=== PATIENT | male | born 1950 | race Caucasian/White ===

== ENCOUNTER → 2018-01-11 09:51 | Outpatient (CLI) | payer MEDICARE, SELFPAY ==
[2018-01-11 11:13] LABS: Alanine Aminotransferase 30 U/L (12-78); Albumin Level 4.1 gm/dL (3.4-5.0); Albumin/Globulin Ratio 1.2 (1.1-1.8); Alkaline Phosphatase 91 U/L (46-116); Anion Gap 9.3 mEq/L (5-15); Aspartate Amino Transferase 16 U/L (15-37); Bilirubin,Total 0.7 mg/dL (0.2-1.0); Blood Urea Nitrogen 12 mg/dL (7-18); Calcium 9.6 mg/dL (8.5-10.1); Carbon Dioxide 31 mmol/L (21.0-32.0); Chloride 103 mmol/L (98-107); Chol/HDL Ratio 4.5 (1-3.5); Cholesterol 189 mg/dL (140-200); Creatinine,Serum 1.09 mg/dL (0.70-1.30); Estimated Glomerular Filt Rate 67 ml/min (>60); GFR (African American) 81 ML/MIN (>60); Globulin 3.4 gm/dl (1.3-3.2); Glucose 94 mg/dL (74-106); HDL Cholesterol 42 mg/dL (27-67); LDL Cholesterol 128 mg/dL (0-130); Potassium 5.3 mmoL/L (3.5-5.1); Sodium 138 mmol/L (136-145); Total Protein,Serum 7.5 gm/dL (6.4-8.2); Triglycerides 96 mg/dL (30-200); VLDL Cholesterol 19 mg/dL (0-40)
== END ==
PROVIDERS: PCP Internal Medicine Adolescent Medicine; Visit Provider Nurse Practitioner Family
DX: Z00.00 Encounter for general adult medical examination without abnormal findings (principal); I10 Essential (primary) hypertension
CPT/HCPCS: 36415; 80053; 80061

== ENCOUNTER → 2019-01-10 09:50 | Outpatient (CLI) | payer MEDICARE, SELFPAY ==
[2019-01-10 21:23] LABS: Alanine Aminotransferase 23 U/L (12-78); Albumin Level 4.1 gm/dL (3.4-5.0); Albumin/Globulin Ratio 1.2 (1.1-1.8); Alkaline Phosphatase 71 U/L (46-116); Anion Gap 12.8 mEq/L (5-15); Aspartate Amino Transferase 14 U/L (15-37); Bilirubin,Total 0.8 mg/dL (0.2-1.0); Blood Urea Nitrogen 16 mg/dL (7-18); Calcium 9.2 mg/dL (8.5-10.1); Carbon Dioxide 28 mmol/L (21.0-32.0); Chloride 102 mmol/L (98-107); Chol/HDL Ratio 4.9 (1-3.5); Cholesterol 185 mg/dL (140-200); Creatinine,Serum 1.23 mg/dL (0.70-1.30); Estimated Glomerular Filt Rate 58 ml/min (>60); GFR (African American) 70 ML/MIN (>60); Globulin 3.3 gm/dl (1.3-3.2); Glucose 103 mg/dL (74-106); HDL Cholesterol 38 mg/dL (27-67); LDL Cholesterol 124 mg/dL (0-130); Potassium 4.8 mmoL/L (3.5-5.1); Sodium 138 mmol/L (136-145); Total Protein,Serum 7.4 gm/dL (6.4-8.2); Triglycerides 113 mg/dL (30-200); VLDL Cholesterol 23 mg/dL (0-40)
== END ==
PROVIDERS: Visit Provider Nurse Practitioner Family
DX: I10 Essential (primary) hypertension (principal)
CPT/HCPCS: 36415; 80053; 80061

== ENCOUNTER → 2020-09-30 10:47 | Outpatient (CLI) | payer MEDICARE, SELFPAY ==
[2020-09-30 11:39] LABS: Basophils # 0.1 K/mm3 (0-0.2); Basophils % 1.2 % (0.1-2.0); Eosinophils # 0.3 K/mm3 (0.0-0.4); Eosinophils % 3.8 % (0.1-12.0); Hematocrit 34.4 % (42.0-52.0); Hemoglobin 11.1 g/dL (14.1-18.0); Lymphocytes # 2.4 K/mm3 (0.7-4.5); Lymphocytes % 36.9 % (10-50); Mean Corpuscular HGB Conc 32.2 g/dL (31.8-35.4); Mean Corpuscular Hemoglobin 32.2 pg (27.0-31.2); Mean Corpuscular Volume 100.2 fl (80-94); Mean Platelet Volume 7.8 fl (7.4-10.4); Monocytes # 0.4 K/mm3 (0.1-1.0); Monocytes % 6.5 % (1.7-9.3); Neutrophils # 3.4 K/mm3 (1.8-7.8); Neutrophils % 51.5 % (37.0-80.0); Platelet Count 343 K/mm3 (142-424); Red Blood Count 3.44 M/mm3 (4.60-6.20); Red Cell Distribution Width 20.9 % (11.5-17.5); White Blood Count 6.5 K/mm3 (4.8-10.8)
[2020-09-30 12:22] LABS: Chloride 103 mmol/L (98-107)
[2020-09-30 12:23] LABS: Potassium 5.5 mmoL/L (3.5-5.1); Sodium 139 mmol/L (136-145)
[2020-09-30 12:26] LABS: Alanine Aminotransferase 13 U/L (12-78); Albumin Level 4.7 g/dl (3.5-5.0); Albumin/Globulin Ratio 1.6 (1.1-1.8); Alkaline Phosphatase 76 U/L (38-126); Anion Gap 16.5 mEq/L (5-15); Aspartate Amino Transferase 24 U/L (17-59); Bilirubin,Total 1.1 mg/dl (0.2-1.3); Blood Urea Nitrogen 16 mg/dl (9-20); Carbon Dioxide 25 mmol/L (22.0-30.0); Cholesterol 155 mg/dl (140-200); Estimated Glomerular Filt Rate 66 ml/min (>60); GFR (African American) 80 ML/MIN (>60); Glucose 99 mg/dl (74-100); Total Protein,Serum 7.7 g/dl (6.3-8.2); Triglycerides 67 mg/dl (30-150); VLDL Cholesterol 13 mg/dL (0-40)
[2020-09-30 12:27] LABS: Chol/HDL Ratio 3.6 (1-3.5); HDL Cholesterol 43 mg/dl (40-60)
[2020-09-30 12:38] LABS: Direct LDL Cholesterol 102.29 mg/dL (100-129)
[2020-09-30 12:43] LABS: Hemoglobin A1C 5.8 % (4.0-6.0)
[2020-09-30 12:45] LABS: 25-OH Vitamin D, Total 36.4 ng/mL (30-100)
[2020-09-30 12:56] LABS: Thyroid Stimulating Hormone 0.97 uIU/mL (0.465-4.68)
[2020-09-30 13:14] LABS: Vitamin B12 299 pg/mL (239-931)
== END ==
PROVIDERS: Visit Provider Internal Medicine Adolescent Medicine
DX: R55 Syncope and collapse (principal); R53.81 Other malaise; I10 Essential (primary) hypertension; R53.83 Other fatigue
CPT/HCPCS: 36415; 80053; 80061; 82306; 82607; 83036; 83735; 84443; 85025

== ENCOUNTER → 2020-10-08 08:07 | Outpatient (CLI) | payer MEDICARE, SELFPAY ==
--- NOTE | 2020-10-08 08:16 | MR_ITS ---
PROCEDURE: MR HEAD/BRAIN WO CON CLINICAL INDICATION: SYNCOPE AND COLLAPSE COMPARISON: No exams were available for comparison TECHNIQUE: Routine multiplanar multi echo sequences are performed without gadolinium enhancement. FINDINGS: No midline shift, mass effect, intracranial hemorrhage, or acute infarction is evident. No restricted diffusion. The cerebellopontine angles, cerebellum, midbrain, and brainstem have an unremarkable appearance. There is mild diffuse cerebral atrophy with scattered periventricular and subcortical T2 white matter hyperintensities most likely related to ischemic gliotic change from microvascular disease. The pituitary, optic chiasm, corpus callosum, and craniocervical junction have an unremarkable appearance. There does appear to be some spinal stenosis at the C3-C4 level as seen on the edge of the sagittal images with bulging disc and degenerative disc disease and lamina hypertrophy at that level. No mastoid effusion or sinus air-fluid level. There is some mild mucosal thickening of the ethmoid sinuses. The ventricles are enlarged but may be related to the volume loss from the generalized atrophy. IMPRESSION: 1. No acute intracranial findings. 2. Atrophy with periventricular ischemic gliotic changes. 3. Enlarged lateral ventricles. This may only be due to the volume loss from the generalized atrophy. Normal pressure hydrocephalus would be included in the differential diagnosis. Please correlate with clinical findings. Dictated by: Gilles Horne MD 10/08/2020 10:16 Gilles Horne MD in [place] 10/08/2020 10:16
== END ==
PROVIDERS: PCP Internal Medicine Adolescent Medicine; Visit Provider Internal Medicine Adolescent Medicine
DX: R55 Syncope and collapse (principal)
CPT/HCPCS: 70551

== ENCOUNTER → 2020-12-16 10:05 | Outpatient (CLI) | payer MEDICARE, SELFPAY ==
--- NOTE | 2020-12-16 10:08 | CA_ITS ---
APPROVED REPORT EXAM: Comprehensive 2D, Doppler, and color-flow Echocardiogram Lead Machinist: Venecia Cummings, RT(R) Ht: 5 ft 9 in Wt: 145lbs BSA: 1.80 BP: 134/67 mmHg Indications: syncope, smoker, HTN 2D Dimensions LVOT 1.97 cm (M/F) 1.5-2.5 LVEF (Pagan's) 59.10 % M: 52 - 72 LV Volume 82.40 mL M: 62 - 150 LV Volume Index 45.77 mL/m2 M: 34 - 74 LA Volume 29.20 mL LA Volume Index 16.22 mL/m2 (M/F) 16-34 M-Mode Dimensions RVDd 2.64 cm (0.9-2.6) LA Diam 3.05 cm (1.9-4.0) LVDd 4.89 cm (3.5-5.7) Ao Diam 2.51 cm (2.0-3.7) LVDs 3.39 cm (3.5-5.7) IVSd 0.54 cm (0.6-1.1) PWd 0.93 cm (0.6-1.1) EF (Teich) 58.10% FS 30.70% EDV (Teich) 112.30 mL ESV (Teich) 47.10 mL LV Diastology E Decel Time 207.00 (160-240 msec) E/A Ratio 1.2 MED E' 11.80 (< 7 cm/sec) E'/MED E' Ratio 8.15 (>14) LAT E' 10.70 (<10 cm/sec) E/LAT E' Ratio 8.99 (>14) Mitral Valve MV E Max Edwardo. 96.00 (40-130 cm/s) MV A Velocity 78.00 (40-130 cm/s) E/A Ratio 1.23 MV Decel. Time 207.00 (160-240 ms) MV PHT 61.00 ms Left Ventricle Left atrium is mildly enlarged, left ventricle is normal size, mild concentric left ventricular hypertrophy, visually estimated ejection fraction 55% with no regional wall motion abnormality, diastolic parameters are inconclusive. Right Ventricle Right atrium and right ventricle are normal size and contractility. Aortic Valve Aortic valve is thickened and calcified without aortic stenosis or aortic insufficiency. Mitral Valve Mitral valve grossly normal, there is mild mitral regurgitation. Tricuspid Valve Tricuspid valve grossly normal, there is mild tricuspid regurgitation, tricuspid regurgitation jet velocity is inadequate for calculation of the right ventricular systolic pressure. Pulmonic Valve Pulmonic valve is poorly visualized. Great Vessels Aortic root is normal size. Pericardium No significant pericardial effusion noted. Conclusion 1. Mildly enlarged left atrium, normal left ventricular size, mild concentric left ventricular hypertrophy, visually estimated ejection fraction 55% with no regional wall motion abnormality, diastolic parameters are inconclusive. 2. Thickened and calcified aortic valve without aortic stenosis or aortic insufficiency. 3. Mild mitral and tricuspid regurgitation. 4. No significant pericardial effusion noted. Electronically signed by : Ruiz Rider MD 12/16/2020 19:34:21
--- NOTE | 2020-12-16 10:09 | CA_ITS ---
APPROVED REPORT Bulk Sausage Casing Tier Off: Dina Foley RVT Laterality: Bilateral Study Quality: Good Indications: Syncope Risk Factors Hypertension: Smoking Doppler Spectral Velocity Analysis ECA (R) 87.70/11.80 cm/s ECA (L) 72.70/7.50 cm/s dICA (R) 96.20/26.70 cm/s dICA (L) 135.80/33.10 cm/s Penny (R) 103.70/23.50 cm/s Penny (L) 104.80/29.90 cm/s pICA (R) 102.70/18.20 cm/s pICA (L) 95.20/21.40 cm/s dCCA (R) 79.10/17.10 cm/s dCCA (L) 104.80/16.00 cm/s pCCA (R) 110.10/15.00 cm/s pCCA (L) 97.30/12.80 cm/s Vert (R) 62.00/19.20 cm/s Vert (L) 59.90/17.10 cm/s ICA/CCA 1.31 ICA/CCA 1.30 Findings Study suggests less than 20% stenosis of the right internal cartoid artery. Study suggests 20-49% stenosis of the left internal cartoid artery. Antegrade flow seen bilateral vertebral arteries. Conclusion Study suggests less than 20% stenosis of the right internal cartoid artery. Study suggests 20-49% stenosis of the left internal cartoid artery. Antegrade flow seen bilateral vertebral arteries. Electronically signed by : Gilles Horne MD 12/16/2020 17:27:33
== END ==
PROVIDERS: PCP Internal Medicine Adolescent Medicine; Visit Provider Nurse Practitioner Family
DX: R55 Syncope and collapse (principal); R00.1 Bradycardia, unspecified
CPT/HCPCS: 93225; 93226; 93306; 93880

== ENCOUNTER → 2021-03-06 07:14 | Outpatient (CLI) | payer MEDICARE, SELFPAY ==
--- NOTE | 2021-03-06 | CA_ITS ---
APPROVED REPORT Exam: Pharmacologic Technologist: Marjorie Morocho, Ht: 5 ft 9 in Wt: 146 lbs BSA: 1.81 m2 HR: 52 bpm BP: 135/40 mmHg Rhythm: NSR, NSS TTW ABNORMALITIES INF-LAT Medical History Medical History: HTN, Hyperlipidemia Medications: Atorvastatin,,,,, Lisinopri/HCTZ,,,,, Allergies: ASPIRIN Cardiac Risk Factors: HTN, Hyperlipidemia Stress Test Details Test: LEXISCAN HR Resting HR: 57 bpm Max Heart Rate (APMHR): 148.772943 bpm Max HR Achieved: 81 bpm Target HR (85% APMHR): 125.598182 bpm % of APMHR: 54.73 Recovery HR: 67 bpm BP Resting BP: 135/40 mmHg Max BP: 146/65 mmHg Recovery BP: 145.0/56.0 mmHg ECG Resting ECG: NSR, NSS TTW ABNORMALITIES INF-LAT Clinical Reason for Termination: Completed Protocol Exercise duration: 04:01 min Highest Stage Achieved: Stress ECG Conclusion NO CP. <1.5MM ST SEGMENT CHANGES. NON DIAGNOSTIC. Electronically signed by : Ruiz Rider MD 03/06/2021 13:18:02
--- NOTE | 2021-03-06 07:15 | NM_ITS ---
APPROVED REPORT Exam: Nuclear Stress Test Indication: short of breath..syncope..fatigue..abn ECG Patient Location: Outpatient Stress Tech: Marjorie Morocho SC Tech:Joy StockYONI RT(R)(N) Ht: 5 ft 9 in Wt: 155 lbs HR: 52 bpm BP: 135/40 mmHg BSA: 1.85 m2 BMI: 22.8 History: short of breath..syncope..fatigue..abn ECG Procedure: Patient received a 0.4 mg of intravenous Lexiscan, resting heart rate 52 bpm, resting blood pressure 135/40 mmHg, with Lexiscan maximum heart rate achived was 78 bpm which is Less than 85 % of the maximum predicted heart rate and blood pressure was 146/65 mmHg. With Lexiscan, patient denied any complaint of chest pain. Electrocardiogram Resting electrocardiogram shows sinus rhythm, with Lexiscan there is less than 1.[address] segment depression noted from the baseline EKG. The EKG portion of the Lexiscan is nondiagnostic. Cardiac Stress and Resting SPECT Images: Cardiac Stress and Resting SPECT images were obtained using technetium 99m Myoview 32.8 mCi stress and 10.54 mCi at rest. Gated SPECT for analysis of segmental wall motion and calculation of the ejection fraction also done. Prone images were also obtained. Cardiac stress and resting SPECT images show a fixed defect in the inferior wall with normal contractility gated SPECT is likely secondary to soft tissue attenuation, no reversible ischemia seen, computer derived ejection fraction is 56% with no regional wall motion abnormality, right ventricle is normal size and contractility. Conclusion: 1. The EKG portion of the Lexiscan is nondiagnostic. 2. No scintigraphic evidence of reversible ischemia seen, computer derived ejection fraction is 56% with no regional wall motion abnormality, right ventricle is normal size and contractility. 3. Likely normal Lexiscan Myoview study. Electronically signed by : Ruiz Rider MD 03/06/2021 13:21:41
== END ==
PROVIDERS: PCP Internal Medicine Adolescent Medicine; Visit Provider Nurse Practitioner Family
DX: R42 Dizziness and giddiness (principal); R55 Syncope and collapse; R94.31 Abnormal electrocardiogram [ECG] [EKG]
CPT/HCPCS: 78452; 93017; A9502; J2785

== ENCOUNTER → 2021-03-11 08:19 | Outpatient (CLI) | payer MEDICARE, SELFPAY | PROVIDERS: PCP Internal Medicine Adolescent Medicine; Visit Provider Nurse Practitioner Family | DX: R42 Dizziness and giddiness (principal) | CPT/HCPCS: 93225; 93270 ==

== ENCOUNTER 2021-10-06 18:59 | Emergency (ER) | payer MEDICARE, SELFPAY ==
[2021-10-06 19:01] VITALS: BP 100/45; PULSE 65; RESP 16; TEMP 36.5; O2SAT 100; BMI 22.8
--- NOTE | 2021-10-06 19:34 | HMH.EDSYNC ---
ED Disposition Condition on Discharge: Good - Critical Care Critical Care Time: No <Thai Ojeda - Last Filed: 10/06/21 19:34> <Chris Cuba - Last Filed: 10/07/21 01:45> Clinical Impression: Near syncope, JIMMY (acute kidney injury) Heat exhaustion Qualifiers: Encounter type: initial encounter Qualified Code(s): T67.5XXA - Heat exhaustion, unspecified, initial encounter Disposition: Home, Self-Care Instructions: DI for Syncope in Adults (Fainting) Additional Instructions: fluids and call pcp for follow up Referrals: Colby Dodson MD [Primary Care Provider] - Attestation: On 10/06/21, the high probability of a clinically significant, sudden or life threatening deterioration of the following system(s) required my full and direct attention, intervention and personal management. The time I documented below is in addition to time spent performing reported procedures but includes the following listed in this critical care notation. Medical Decision Making - Medical Records Medical records reviewed: Yes: I reviewed the patient's medical records. - Davis Inquiry Pt receiving controlled substance: No <Thai Ojeda - Last Filed: 10/06/21 19:34> - Lab Data Lab results reviewed: Yes: I reviewed the patient's lab results. Result diagrams: 10/06/21 19:30 10/06/21 19:30 <Chris Cuba - Last Filed: 10/07/21 01:45> Vital Signs: 10/06/21 19:01 10/06/21 20:01 10/06/21 20:30 Temperature 97.7 F Temperature Source Oral Pulse Rate 66 59 L Pulse Rate [Left] 65 Respiratory Rate 16 Blood Pressure 118/50 L 128/56 L Blood Pressure [Right Arm] 100/45 L Blood Pressure Mean 67 80 Blood Pressure Mean [Right Arm] 63 02 Sat by Pulse Oximetry 100 100 100 Oxygen Delivery Method Room Air - Lab Data Lab Results 10/06/21 19:30: WBC 12.6 H, RBC 3.32 L, Hgb 10.9 L, Hct 34.5 L, MCV 103.8 H, MCH 32.8 H, MCHC 31.6 L, RDW 23.5 H, Plt Count 378, MPV 8.7, Neut % (Auto) 84.4 H, Lymph % (Auto) 8.7 L, Scott % (Auto) 6.1, Eos % (Auto) 0.4, Baso % (Auto) 0.5, Neut # (Auto) 10.6 H, Lymph # (Auto) 1.1, Scott # (Auto) 0.8, Eos # (Auto) 0.1, Baso # (Auto) 0.1 10/06/21 19:30: Sodium 136, Potassium 4.4, Chloride 100, Carbon Dioxide 24, Anion Gap 16.4 H, BUN 19, Creatinine 2.00 H, Estimated Creat Clear 33, Estimated GFR 33 L, Est GFR ( Amer) 40 L, Glucose 141 H, Calcium 10.2, Total Bilirubin 1.6 H, AST 28, ALT 21, Alkaline Phosphatase 140 H, Total Protein 7.9, Albumin 4.6, Globulin 3.3 H, Albumin/Globulin Ratio 1.4 Orders (Tests/Meds): ED MEDICATIONS Discontinued Medications Generic Name Dose Route Start Last Admin Trade Name Freq PRN Reason Stop Dose Admin Sodium Chloride 1,000 mls @ 999 mls/hr 10/06/21 19:45 10/06/21 19:59 Sod Chlor 0.9% 1000ml Bag IV 10/06/21 20:45 999 mls/hr .Q1H1M VALENTINE Administration Sodium Chloride 1,000 mls @ 999 mls/hr 10/06/21 19:45 10/06/21 19:59 Sod Chlor 0.9% 1000ml Bag IV 10/06/21 20:45 999 mls/hr .Q1H1M VALENTINE Administration Sodium Chloride 1,000 mls @ 999 mls/hr 10/06/21 21:00 10/06/21 20:55 Sod Chlor 0.9% 1000ml Bag IV 10/06/21 22:00 999 mls/hr .Q1H1M VALENTINE Administration ORDERS Category Date Time Status Urinalysis and Microscopic Routine Lab 10/06/21 22:07 Received Urine Culture Stat Micro 10/07/21 01:39 Ordered Medical Decision Narrative: has prob heat related injury with jimmy - asked pt to see pcp for follow up about meds and labs (Chris Cuba) Syncope HPI - General Limitations: No Limitations - History of Present Illness MD complaint: felt faint Onset (ago): minute(s) -: second(s) Prodromal symptoms: none Context: at rest Injuries sustained associated with event: none <Thia Ojeda - Last Filed: 10/06/21 19:34> - General Source of Information: Patient, Medical Record <Chris Cuba - Last Filed: 10/07/21 01:45> - General Stated Complaint: Dizziness,confused.stopped up
--- NOTE | 2021-10-06 19:37 | ECG_ITS ---
APPROVED REPORT Exam: Resting ECG HR:58 bpm ECG Measurements Heart Rate 58 AXES SC 153 P -45 QRSd 85 QRS 66 QT 397 T 70 QTc 395 Conclusion SINUS BRADYCARDIA BORDERLINE ECG UNCONFIRMED REPORT Electronically signed by : Colby Dodson MD 10/07/2021 17:57:30
[2021-10-06 19:43] LABS: Basophils # 0.1 K/mm3 (0-0.2); Basophils % 0.5 % (0.1-2.0); Eosinophils # 0.1 K/mm3 (0.0-0.4); Eosinophils % 0.4 % (0.1-12.0); Hematocrit 34.5 % (42.0-52.0); Hemoglobin 10.9 g/dL (14.1-18.0); Lymphocytes # 1.1 K/mm3 (0.7-4.5); Lymphocytes % 8.7 % (10-50); Mean Corpuscular HGB Conc 31.6 g/dL (31.8-35.4); Mean Corpuscular Hemoglobin 32.8 pg (27.0-31.2); Mean Corpuscular Volume 103.8 fl (80-94); Mean Platelet Volume 8.7 fl (7.4-10.4); Monocytes # 0.8 K/mm3 (0.1-1.0); Monocytes % 6.1 % (1.7-9.3); Neutrophils # 10.6 K/mm3 (1.8-7.8); Neutrophils % 84.4 % (37.0-80.0); Platelet Count 378 K/mm3 (142-424); Red Blood Count 3.32 M/mm3 (4.60-6.20); Red Cell Distribution Width 23.5 % (11.5-17.5); White Blood Count 12.6 K/mm3 (4.8-10.8)
[2021-10-06 19:56] LABS: Alanine Aminotransferase 21 U/L (12-78); Albumin Level 4.6 g/dl (3.5-5.0); Albumin/Globulin Ratio 1.4 (1.1-1.8); Alkaline Phosphatase 140 U/L (38-126); Anion Gap 16.4 mEq/L (5-15); Aspartate Amino Transferase 28 U/L (17-59); Bilirubin,Total 1.6 mg/dl (0.2-1.3); Blood Urea Nitrogen 19 mg/dl (9-20); Calcium 10.2 mg/dl (8.4-10.2); Carbon Dioxide 24 mmol/L (22.0-30.0); Chloride 100 mmol/L (98-107); Estimated Glomerular Filt Rate 33 ml/min (>60); GFR (African American) 40 ML/MIN (>60); Globulin 3.3 g/dL (1.3-3.2); Glucose 141 mg/dl (74-100); Potassium 4.4 mmoL/L (3.5-5.1); Sodium 136 mmol/L (136-145); Total Protein,Serum 7.9 g/dl (6.3-8.2)
[2021-10-06 20:01] VITALS: BP 118/50; PULSE 66; O2SAT 100
[2021-10-06 20:01] LABS: Creatinine Clearance Estimated 33 mL/min (50-200)
[2021-10-06 20:30] VITALS: BP 128/56; PULSE 59; O2SAT 100
[2021-10-06 23:30] VITALS: BP 128/56; PULSE 59; RESP 18; TEMP 36.8; O2SAT 100
[2021-10-07 01:11] LABS: Microscopic, Urine URINE MICROSCOPIC (MICROSCOPIC)
[2021-10-07 02:26] LABS: Appearance,Urine CLEAR (Clear); Bilirubin,Urine 1+ (Negative); Blood, Urine Negative (Negative); Color,Urine DK YELLOW (Yellow); Glucose,Urine (UA) Negative (Negative); Ketones,Urine TRACE (Negative); Leukocyte Esterase,Urine Negative (Negative); Nitrate,Urine Negative (Negative); Protein,Urine 3+ (Negative); Specific Gravity, Urine 1.025 (1.005-1.030)
[2021-10-07 02:27] LABS: Bacteria,Urine 1+ /lpf; RBC,Urine Occasional #/hpf (0-3)
== END 2021-10-06 23:40 | disposition home or self-care (01) ==
PROVIDERS: Emergency Provider Emergency Medicine; PCP Internal Medicine Adolescent Medicine
DX: R55 Syncope and collapse (principal); T67.5XXA Heat exhaustion, unspecified, initial encounter; R41.0 Disorientation, unspecified; F17.210 Nicotine dependence, cigarettes, uncomplicated; Z79.82 Long term (current) use of aspirin; Z88.6 Allergy status to analgesic agent
CPT/HCPCS: 80053; 81001; 85025; 87086; 93005; 96360; 96361; 99285

== ENCOUNTER 2022-01-05 14:20 | Emergency (ER) | payer MEDICARE, SELFPAY ==
[2022-01-05] VITALS (7 sets, daily range): BP systolic 107–177; BP diastolic 70–89; PULSE 60–87; RESP 16–20; TEMP 36.7–37.1; O2SAT 95–100; BMI 22.8
--- NOTE | 2022-01-05 14:22 | ECG_ITS ---
APPROVED REPORT Exam: Resting ECG HR:57 bpm ECG Measurements Heart Rate 57 AXES MS 169 P -76 QRSd 85 QRS 75 QT 430 T 73 QTc 424 Conclusion SINUS BRADYCARDIA BORDERLINE ECG UNCONFIRMED REPORT Electronically signed by : Colby Dodson MD 01/06/2022 14:04:09
--- NOTE | 2022-01-05 14:40 | PC.NURSE ---
GCS 15/NIH 0.
--- NOTE | 2022-01-05 15:05 | HMH.EDGENADL ---
Discharge Plan Disposition Patient Disposition: Home, Self-Care Condition: Good Chief Complaint: Weakness Prescriptions Prescriptions: No Action atorvastatin 40 mg tablet 40 mg PO DAILY levetiracetam 500 mg tablet 500 mg PO BID Label Comments: TAKE 1 TABLET BY MOUTH TWICE DAILY aspirin 81 mg tablet,delayed release (DR/EC) 81 mg PO DAILY Rx Instructions: Take 1 tablet by mouth once daily lisinopril 10 mg tablet 10 mg PO DAILY Rx Instructions: Take 1 tablet by mouth once daily Referrals Follow up/Referrals: Colby Dodson MD [Primary Care Provider] - See instructions Activity Restrictions/Add. Instructions Additional Instructions/Restrictions: Rest and drink plenty of fluids tonight. Return emergency department if fainting returns or feeling faint. Return if any new symptoms such as chest pain or shortness of breath. Follow-up with primary care provider, call for appointment. Clinical Impressions Clinical Impression: Syncope Discharge ED Provider: Timbo Templeton General Adult HPI General Chief complaint: Weakness Stated complaint: weakness Time Seen by Provider: 01/05/22 15:05 Mode of Arrival: EMS Source of Information: Patient Limitations: No Limitations Description of Symptoms (Recalled from ER Triage Doc. by RN): PT WAS OUTSIDE WORKING WHILE WEARING MULTIPLE LAYERS OF CLOTHES. PT WENT DOWN - NO LOC PER FAMILY WHO WITNESSED. EMS CALLED. REMOVED EXTRA CLOTHING, ADMINISTERED IVF. PT STATES HE FEELS BETTER NOW AND IS NOT SURE WHY HE IS AT THE ER. PT STATES HE HAD NOT EAT OR DRINK ANYTHING TODAY. PT ALSO STATES HE HAS HAD A DECLINING MEMORY FOR THE PAST YEAR. History of Present Illness HPI narrative: History obtained from patient and his employer who is a longtime friend. 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 States he was running a tractor this morning and then was inside for lunch speaking with some of his family when he apparently passed out. He says that the patient has a history of this, passing out in the [place] due to dehydration and heat exhaustion from farm work. He says that the last time this happened was this summer and he was seen in the emergency department here and required 4 bags of fluids before he would urinate. He states the patient has memory problems for the past couple of years and does not eat and drink much. He has had his memory problems evaluated by Dr. Dodson and is seen a neurologist. Patient remembers feeling weak and dizzy, denies any other symptoms. No headache, chest pain, abdominal pain, shortness of breath, fever, vomiting, diarrhea, URI symptoms. States that he feels much better now. He was given 500 cc bolus of fluids during transport here. He also has been told he has a seizure disorder. No seizure activity noted today. Related Data Home Medications Medication Instructions Recorded Confirmed atorvastatin 40 mg tablet 40 mg PO DAILY High cholesterol 02/26/21 01/05/22 levetiracetam 500 mg tablet 500 mg PO BID SEIZURES 11/17/21 01/05/22 aspirin 81 mg tablet,delayed 81 mg PO DAILY Blood thinner 01/05/22 01/05/22 release lisinopril 10 mg tablet 10 mg PO DAILY Hypertension 01/05/22 01/05/22 Allergies Allergy/AdvReac Type Severity Reaction Status Date / Time No Known Allergies Allergy Verified 11/17/21 15:10 [facility] Social History Smoking Status: Current every day smoker alcohol intake: never substance use type: denies use 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
[2022-01-05 16:06] LABS: Chloride 103 mmol/L (98-107)
[2022-01-05 16:07] LABS: Potassium 3.1 mmoL/L (3.5-5.1); Sodium 138 mmol/L (136-145)
[2022-01-05 16:09] LABS: Alanine Aminotransferase 11 U/L (12-78); Alkaline Phosphatase 103 U/L (38-126); Anion Gap 13.1 mEq/L (5-15); Aspartate Amino Transferase 22 U/L (17-59); Basophils # 1.4 K/mm3 (0-0.2); Basophils % 11.6 % (0.1-2.0); Blood Urea Nitrogen 9 mg/dl (9-20); Carbon Dioxide 25 mmol/L (22.0-30.0); Creatinine Clearance Estimated 65 mL/min (50-200); Eosinophils # 0.4 K/mm3 (0.0-0.4); Eosinophils % 3.4 % (0.1-12.0); Estimated Glomerular Filt Rate 83 ml/min (>60); GFR (African American) 100 ML/MIN (>60); Hematocrit 32.6 % (42.0-52.0); Hemoglobin 9.4 g/dL (14.1-18.0); Lymphocytes % 24.1 % (10-50); Mean Corpuscular HGB Conc 28.9 g/dL (31.8-35.4); Mean Corpuscular Hemoglobin 31.5 pg (27.0-31.2); Mean Corpuscular Volume 108.9 fl (80-94); Monocytes # 0.8 K/mm3 (0.1-1.0); Monocytes % 6.7 % (1.7-9.3); Neutrophils # 8.1 K/mm3 (1.8-7.8); Neutrophils % 65.8 % (37.0-80.0); Platelet Count 293 K/mm3 (142-424); White Blood Count 12.3 K/mm3 (4.8-10.8)
[2022-01-05 16:10] LABS: Albumin Level 3.7 g/dl (3.5-5.0); Albumin/Globulin Ratio 1.3 (1.1-1.8); Calcium 8.3 mg/dl (8.4-10.2); Globulin 2.9 g/dL (1.3-3.2); Glucose 117 mg/dl (74-100); Total Protein,Serum 6.6 g/dl (6.3-8.2)
[2022-01-05 16:18] LABS: Red Cell Distribution Width 26.6 % (11.5-17.5)
[2022-01-05 16:28] LABS: Troponin I < 0.01 ng/ml (0.00-0.034)
--- NOTE | 2022-01-05 16:47 | PC.NURSE ---
PO FLUIDS GIVEN. URINE COLLECTED. WILL CONTINUE TO MONITOR.
[2022-01-05 16:52] LABS: Microscopic, Urine URINE MICROSCOPIC (MICROSCOPIC)
[2022-01-05 16:53] LABS: Appearance,Urine CLEAR (Clear); Bilirubin,Urine Negative (Negative); Blood, Urine Negative (Negative); Color,Urine YELLOW (Yellow); Glucose,Urine (UA) Negative (Negative); Ketones,Urine Negative (Negative); Leukocyte Esterase,Urine Negative (Negative); Nitrate,Urine Negative (Negative); Protein,Urine TRACE (Negative)
[2022-01-05 17:07] LABS: Squamous Epithelial Cell,Urine Occasional #/hpf (0-5); WBC,Urine Occasional #/hpf (0-3)
== END 2022-01-05 17:37 | disposition home or self-care (01) ==
PROVIDERS: Emergency Provider Emergency Medicine; PCP Internal Medicine Adolescent Medicine
DX: R55 Syncope and collapse (principal); Z79.82 Long term (current) use of aspirin; Z79.899 Other long term (current) drug therapy; I10 Essential (primary) hypertension; E78.5 Hyperlipidemia, unspecified; R56.9 Unspecified convulsions; Z72.0 Tobacco use
CPT/HCPCS: 80053; 81001; 84484; 85025; 93005; 96365; 99284

== ENCOUNTER 2022-05-10 19:54 | Inpatient (IN) | payer MEDICARE, SELFPAY ==
[2022-05-10] VITALS (7 sets, daily range): BP systolic 105–133; BP diastolic 43–69; PULSE 81–95; RESP 16–18; TEMP 37.2–38; O2SAT 95–99; BMI 20.1; BMI 20.7
--- NOTE | 2022-05-10 20:13 | XR_ITS ---
PROCEDURE INFORMATION: Exam: XR Pelvis Exam date and time: 05/10/2022 8:39 PM Age: 71 years old Clinical indication: Injury or trauma; Fall; Blunt trauma (contusions or hematomas); Bilateral; Pelvic region; Patient HX: Patient found in floor. ; Additional info: AMS TECHNIQUE: Imaging protocol: Radiologic exam of the pelvis. Views: 1 or 2 view. COMPARISON: CR [id number] LUMBAR SPINE 5 VIEWS 01/25/2016 4:08 PM FINDINGS: Bones/joints: No acute fracture or dislocation. Soft tissues: Unremarkable. Gastrointestinal tract: Mildly dilated segments of gas-filled small bowel in the pelvis may represent ileus or slow motility. Vasculature: Vascular calcifications. IMPRESSION: 1. No acute fracture or dislocation. 2. Mildly dilated segments of gas-filled small bowel in the pelvis may represent ileus or slow motility.
[2022-05-10 20:22] LABS: Basophils # 0.1 K/mm3 (0-0.2); Basophils % 0.3 % (0.1-2.0); Eosinophils # 0.1 K/mm3 (0.0-0.4); Eosinophils % 0.4 % (0.1-12.0); Hematocrit 31.6 % (42.0-52.0); Hemoglobin 10.4 g/dL (14.1-18.0); Lymphocytes % 5.3 % (10-50); Mean Corpuscular Hemoglobin 32.4 pg (27.0-31.2); Mean Corpuscular Volume 98.3 fl (80-94); Mean Platelet Volume 9.2 fl (7.4-10.4); Monocytes # 0.9 K/mm3 (0.1-1.0); Monocytes % 4.7 % (1.7-9.3); Neutrophils # 17.3 K/mm3 (1.8-7.8); Neutrophils % 89.3 % (37.0-80.0); Platelet Count 261 K/mm3 (142-424); Red Blood Count 3.21 M/mm3 (4.60-6.20); Red Cell Distribution Width 22.7 % (11.5-17.5); White Blood Count 19.4 K/mm3 (4.8-10.8)
[2022-05-10 20:24] LABS: Microscopic, Urine URINE MICROSCOPIC (MICROSCOPIC)
[2022-05-10 20:26] LABS: Alanine Aminotransferase 36 U/L (12-78); Albumin/Globulin Ratio 1.4 (1.1-1.8); Alkaline Phosphatase 87 U/L (38-126); Anion Gap 10.9 mEq/L (5-15); Aspartate Amino Transferase 76 U/L (17-59); Bilirubin,Total 0.7 mg/dl (0.2-1.3); Blood Urea Nitrogen 26 mg/dl (9-20); Carbon Dioxide 22 mmol/L (22.0-30.0); Chloride 109 mmol/L (98-107); Creatinine Clearance Estimated 44 mL/min (50-200); Estimated Glomerular Filt Rate 59 ml/min (>60); GFR (African American) 72 ML/MIN (>60); Globulin 2.9 g/dL (1.3-3.2); Glucose 92 mg/dl (74-100); Lactic Acid 1.8 mmol/L (0.7-2.1); Potassium 3.9 mmoL/L (3.5-5.1); Sodium 138 mmol/L (136-145); Total Protein,Serum 6.9 g/dl (6.3-8.2)
[2022-05-10 20:26] LABS: Appearance,Urine CLEAR (Clear); Bilirubin,Urine Negative (Negative); Blood, Urine 2+ (Negative); Color,Urine YELLOW (Yellow); Glucose,Urine (UA) Negative (Negative); Ketones,Urine TRACE (Negative); Leukocyte Esterase,Urine Negative (Negative); Nitrate,Urine Negative (Negative); PH,Urine 5.5 (5.0-8.5); Protein,Urine Negative (Negative); Specific Gravity, Urine 1.025 (1.005-1.030); Urobilinogen,Urine 0.2 EU/dl (0.2)
[2022-05-10 20:32] LABS: MANUAL DIFFERENTIAL MANUAL DIFFERENTIAL (MANUAL DIFF)
[2022-05-10 20:34] LABS: Creatine Kinase MB 25.1 ng/ml (0.0-2.03)
[2022-05-10 20:38] LABS: Creatine Kinase 2609 U/L (55-170)
--- NOTE | 2022-05-10 20:47 | PC.NURSE ---
patient gone to xray at this time
--- NOTE | 2022-05-10 20:47 | HMH.EDAMS ---
Discharge Plan Disposition Patient Disposition: Admitted as Observation Chief Complaint: Altered Mental Status Prescriptions Prescriptions: No Action atorvastatin 40 mg tablet 40 mg PO DAILY levetiracetam 500 mg tablet 500 mg PO BID Label Comments: TAKE 1 TABLET BY MOUTH TWICE DAILY aspirin 81 mg tablet,delayed release (DR/EC) 81 mg PO DAILY Rx Instructions: Take 1 tablet by mouth once daily lisinopril 10 mg tablet 10 mg PO DAILY Rx Instructions: Take 1 tablet by mouth once daily Discharge ED Provider: Rosa Elena (ED)Chris Altered Mental Status HPI General Chief Complaint: Altered Mental Status Stated Complaint: ams Time Seen by Provider: 05/10/22 20:10 Mode of Arrival: EMS Source of Information: Patient, EMS and Medical Record Limitations: Altered Mental Status Description of Symptoms (Recalled from ER Triage Doc. by RN): pt is a transferred from [facility]. per that er pt was a heart alert and was missing since 2am and found at 11am. pt was diagnosed with JIMMY and elevated lactic History of Present Illness HPI narrative: pt with hx of known dementia who was missing overnight and found in [facility] this am and seen at [facility] and transferred to [facility] ed records reviewed MD complaint: altered mental status Onset (ago): hour(s) Severity: moderate Related Data Home Medications Medication Instructions Recorded Confirmed atorvastatin 40 mg tablet 40 mg PO DAILY High cholesterol 02/26/21 01/05/22 levetiracetam 500 mg tablet 500 mg PO BID SEIZURES 11/17/21 01/05/22 aspirin 81 mg tablet,delayed 81 mg PO DAILY Blood thinner 01/05/22 01/05/22 release lisinopril 10 mg tablet 10 mg PO DAILY Hypertension 01/05/22 01/05/22 Allergies Allergy/AdvReac Type Severity Reaction Status Date / Time No Known Allergies Allergy Verified 11/17/21 15:10 [facility] Disclaimer: The information contained in this section may have been updated after the patient was seen, as this information can be updated by other users. 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) Travel in the last 8 weeks: None household members: none housing: house ROS Obtained: Yes unobtainable due to mental status Physical Exam General General appearance: alert and other (confused - hx of dementia ) Head Head exam: normocephalic Eye Eye exam: Present PERRL and EOMI; Absent jaundice or nystagmus ENT ENT exam: Present mucous membranes dry and other (no evid of tongue biting ) Neck Neck exam: Present trachea midline; Absent meningismus Respiratory Respiratory exam: Present normal lung sounds bilaterally; Absent respiratory distress Cardiovascular Cardiovascular exam: Present regular rate, systolic murmur and +S4 Abdominal Exam Abdominal exam: Present soft; Absent tenderness Extremities Exam Extremities exam: Absent edema or joint swelling Back Exam Back exam: Absent vertebral tenderness Neurological Exam Neurological exam: Present alert, CN II-XII intact and other (gsc=14); Absent oriented X3 or motor sensory deficit Skin Skin exam: Present other (abrasions ) Medical Decision Making Medical Records Medical records reviewed: Yes I reviewed the patient's medical records. Davis Inquiry Pt receiving controlled substance: No Vital Signs: 05/10/22 19:54 05/10/22 20:34 05/10/22 21:00 Temperature 100.4 F H Temperature Source Rectal Pulse Rate 90 85 Pulse Rate [Right] 95 H Respiratory Rate 16 Blood Pressure 128/66 115/55 L Blood Pressure [Right Arm] 130/64 Blood Pressure Mean 86 75 Blood Pressure Mean [Right Arm] 86 02 Sat by Pulse Oximetry 95 98 97 05/10/22 21:04 Temperature Temperature Source Pulse Rate 81 Pulse Rate [Right] Respiratory Rate Blood Pressure 105/53 L Blood Pressure [Right Arm] Blood Pressure Mean 70 Blood Pressure
[2022-05-10 21:07] LABS: Amorphous Sediment,Urine 1+ /lpf; Bacteria,Urine Trace /lpf
[2022-05-10 21:15] LABS: Coronavirus 19, PCR Not Detected (NotDetected); Influenza A, PCR Not Detected (NotDetected); Influenza B, PCR Not Detected (NotDetected)
--- NOTE | 2022-05-10 21:19 | PC.NURSE ---
paged dr chance
--- NOTE | 2022-05-10 21:26 | PC.NURSE ---
kasandra on phone with dr chance
[2022-05-10 21:29] LABS: Lymphocytes % 6 % (10-50); Monocytes % 5 % (2-9); Neutrophils % 89 % (42-76); Total Cells Counted 100
[2022-05-10 21:30] LABS: Acanthocytes 1+; Ovalocytes 1+; Platelet Estimate Normal
[2022-05-10 21:37] LABS: Troponin I 0.11 ng/ml (0.00-0.034)
--- NOTE | 2022-05-10 22:02 | PC.NURSE ---
pt arived to floor at this time
[2022-05-11 01:03] LABS: Troponin I 0.12 ng/ml (0.00-0.034)
[2022-05-11 04:00] VITALS: BP 98/60; PULSE 67; RESP 17; TEMP 36.8; O2SAT 95; BMI 20.7
[2022-05-11 04:06] LABS: Troponin I 0.11 ng/ml (0.00-0.034)
--- NOTE | 2022-05-11 04:36 | PC.NURSE ---
Pt. is aox1 with confusion. Bed alarm is on and urinal is next to the patient.
[2022-05-11 07:04] LABS: Basophils # 0.1 K/mm3 (0-0.2); Basophils % 0.5 % (0.1-2.0); Chloride 113 mmol/L (98-107); Eosinophils # 0.3 K/mm3 (0.0-0.4); Eosinophils % 2.4 % (0.1-12.0); Hemoglobin 9.4 g/dL (14.1-18.0); Lymphocytes # 2.3 K/mm3 (0.7-4.5); Lymphocytes % 17.2 % (10-50); Mean Corpuscular HGB Conc 32.5 g/dL (31.8-35.4); Mean Corpuscular Hemoglobin 32.1 pg (27.0-31.2); Mean Corpuscular Volume 98.9 fl (80-94); Mean Platelet Volume 8.6 fl (7.4-10.4); Monocytes # 0.7 K/mm3 (0.1-1.0); Monocytes % 5.1 % (1.7-9.3); Neutrophils # 10.1 K/mm3 (1.8-7.8); Neutrophils % 74.7 % (37.0-80.0); Platelet Count 209 K/mm3 (142-424); Potassium 4.4 mmoL/L (3.5-5.1); Red Blood Count 2.93 M/mm3 (4.60-6.20); Red Cell Distribution Width 22.8 % (11.5-17.5); Sodium 139 mmol/L (136-145); White Blood Count 13.5 K/mm3 (4.8-10.8)
[2022-05-11 07:06] LABS: Blood Urea Nitrogen 24 mg/dl (9-20); Creatinine Clearance Estimated 54 mL/min (50-200); Estimated Glomerular Filt Rate 73 ml/min (>60); GFR (African American) 89 ML/MIN (>60)
[2022-05-11 07:07] LABS: Anion Gap 10.4 mEq/L (5-15); Calcium 8.4 mg/dl (8.4-10.2); Carbon Dioxide 20 mmol/L (22.0-30.0); Glucose 87 mg/dl (74-100); Magnesium 1.9 mg/dl (1.6-2.3)
[2022-05-11 07:26] LABS: Creatine Kinase 3748 U/L (55-170)
--- NOTE | 2022-05-11 07:52 | HMH.PHAINT1 ---
Pharmacy Intervention Comments: Medication reconciliation completed using external fill history
[2022-05-11 08:00] VITALS: BP 121/60; PULSE 79; RESP 19; TEMP 36.9; O2SAT 97
--- NOTE | 2022-05-11 08:36 | EXP.HP ---
History of Present Illness *Admission Date: 05/10/22 *Reason for visit:: Rhabdomyolysis *History of present illness: 71-year-old male who suffers from dementia and possible seizure disorder, who has been declining over the past several months, has been in the care of his brother but apparently yesterday was found to be missing around 3 AM near his residence in [facility]. He was triggered for a Blunt Alert through the EMS/law enforcement system, and was found at 11 AM and was taken to the [facility] in [place], [place] for evaluation. He was found to have rhabdomyolysis, dehydration and worsening dementia. He was then transferred from the ER there to the ER here from the [facility] because of purported staffing issues at the [place] facility. In the ER here he was found to have elevated CPK levels, renal function was normal, he was given IV fluids and admitted to hospital. Patient has no memory of the events of yesterday and does not have ability to relay history. [facility] Disclaimer: The information contained in this section may have been updated after the patient was seen, as this information can be updated by other users. 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) Travel in the last 8 weeks: None household members: none housing: house Review of Systems Review of Systems Review of systems:: unable to obtain Meds Home Medications and Allergies Home Medications Medication Instructions Recorded Confirmed Type levetiracetam 500 mg tablet 500 mg PO BID SEIZURES 11/17/21 05/11/22 History aspirin 81 mg tablet,delayed 81 mg PO DAILY heart health 01/05/22 05/11/22 History release amlodipine 5 mg tablet 5 mg PO DAILY High blood pressure 05/11/22 05/11/22 History folic acid 1 mg tablet 1 mg PO DAILY Supplement 05/11/22 05/11/22 History lisinopril 20 mg tablet 20 mg PO DAILY High blood pressure 05/11/22 05/11/22 History New Prescriptions to Start Prescriptions: Allergies Allergy/AdvReac Type Severity Reaction Status Date / Time No Known Allergies Allergy Verified 11/17/21 15:10 Exam Data for Last 24 hours Vital signs and Labs for Last 24 Hours: Temp Pulse Resp BP Pulse Ox 98.5 F 79 19 121/60 97 05/11/22 08:00 05/11/22 08:00 05/11/22 08:00 05/11/22 08:00 05/11/22 08:00 Laboratory Results - last 24 hr 05/10/22 20:05: WBC 19.4 H, RBC 3.21 L, Hgb 10.4 L, Hct 31.6 L, MCV 98.3 H, MCH 32.4 H, MCHC 33.0, RDW 22.7 H, Plt Count 261, MPV 9.2, Neut % (Auto) 89.3 H, Lymph % (Auto) 5.3 L, [place] % (Auto) 4.7, Eos % (Auto) 0.4, Baso % (Auto) 0.3, Neut # (Auto) 17.3 H, Lymph # (Auto) 1.0, [place] # (Auto) 0.9, Eos # (Auto) 0.1, Baso # (Auto) 0.1, Total Counted 100, Neutrophils % (Manual) 89 H, Lymphocytes % (Manual) 6 L, Monocytes % (Manual) 5, Platelet Estimate Normal, RBC Morphology Not Reportable, Ovalocytes 1+, Acanthocytes (Spur) 1+ 05/10/22 20:05: Sodium 138, Potassium 3.9, Chloride 109 H, Carbon Dioxide 22, Anion Gap 10.9, BUN 26 H, Creatinine 1.20, Estimated Creat Clear 44, Estimated GFR 59, Est GFR ( Amer) 72, Glucose 92, Calcium 9.0, Total Bilirubin 0.7, AST 76 H, ALT 36, Alkaline Phosphatase 87, Total Creatine Kinase 2609 H*, CK-MB (CK-2) 25.1 H*, Total Protein 6.9, Albumin 4.0, Globulin 2.9, Albumin/Globulin Ratio 1.4 05/10/22 20:05: Lactate 1.8 05/10/22 20:05: Troponin I 0.11 H 05/10/22 20:11: Urine Color Yellow, Urine Appearance Clear, Urine pH 5.5, Ur Specific [place] 1.025, Urine Protein Negative, Urine Glucose (UA) Negative, Urine Ketones Trace, Urine Blood 2+, Urine Nitrate Ne
[2022-05-11 08:45] VITALS: BMI 20.7
--- NOTE | 2022-05-11 09:35 | HMH.OTEV ---
OT Inpatient Evaluation Rehab OT IP Evaluation Start: 05/11/22 08:20 Freq: ONCE Status: Active Protocol: Document 05/11/22 09:22 DELFINO (Rec: 05/11/22 09:34 [facility] [id number]) Rehab OT IP Assessment Subjective History Pt was seen resting in bed upon arrivial. Pt was oriented x2 person and . Pt was agreeable to engage in therapy evaluation. Pt was admitted to [facility] on 05/10/22 due to Rhabdomyolysis. Pt suffers from dementia. Pt reports that he was independent in all ADLs and IADLs. Pt reports that his brother assists him with cooking and cleaning tasks. Pt reports that he lives with his brother. He reports that is not able to drive, but his brother assists with driving and grocery shopping. Pt has a past medical history of the following: Hyperlipidemia Hypertension Seizures Pt was left resting in bed with call gaming and all other needs within reach. Subjective I think I could drive, but my brother doesn't let me. Objective Patient Orientation Person,Birthday Upper Extremity Gross ROM WNL Bed Mobility bed mobility-scooting,bed mobility - supine/sit Assist Level Independent Transfer Training Sit/Stand Transfer Assist Level Supervision/Stand by Lower Body Dressing Ability Independent decrease in endurance No Rehab OT IP prob,goals,plan Problems Date of Evaluation: 05/11/22 Rehab Potential Rehab Potential Innapropriate for Skilled Therapy Discharge Plan OT Discharge Plan Pt appears to be at baseline for funcitonal transfers and ADL tasks. However due to safety awareness deficits from dementia status, pt would benefit from a long-term care facility to assist with safety and well-avtar
--- NOTE | 2022-05-11 09:45 | HMH.PTEV ---
Physical Therapy Evaluation Rehab PT IP Evaluation Start: 05/11/22 08:19 Freq: ONCE Status: Active Protocol: Document 05/11/22 09:38 MIGUEL (Rec: 05/11/22 09:45 PHOENRIQUETA [id number]) Subjective/History History History 71 yowm with hx of dementia adm to [facility] after wandering away from his house and being found lost in a [place] area. He lives with his brother at baseline, 1-2 steps to enter the home, and he is generally independent with all mobility. Subjective Subjective Pt has no c/o this am. He presents with multiple very small skin tears and abrasions on B UE and LE. Rehab PT IP Eval Objective Appearance Patient Behavior Appropriate Patient Orientation Person,Name,Birthday Difficulty following instructions none Speech Pattern Clear Ambulation Patient Able to Ambulate Yes Ambulation Observation IP General Gait Pattern Observation No Deviations/Normal Ambulation Distance (feet) 50 Ambulation Assistive Device None Ambulation Ability Supervision/Stand by Balance Ability to Arise Able, uses arms to help Sitting Balance Steady, safe Standing Balance Steady, wide stance Dynamic Sitting Balance Ability Good Dynamic Standing Balance Ability Good Transfers Bed Transfer Ability Supervision/Stand by Chair Transfer Ability Supervision/Stand by Sit to Stand Bed Transfer Ability Supervision/Stand by Sit to Stand Chair Transfer Ability Supervision/Stand by ROM All Extremities PT ROM Status WFL MMT All Extremities PT MMT WFL Rehab PT IP prob,goals,plan Problems Date of Evaluation: 05/11/22 Discharge Plan PT Discharge Plan Pt appears to be at baseline for all mobility at this time, dementia is the significant limiting factor in his rehab status. He may need SNF placement due to decreasing cognition, but h could return home with current mobility status. G -code Required No Eval Complexity Eval Charge Codes 31641 - Moderate Complexity PHYSICIAN CERTIFICATION: I certify the specified therapy services for Walter Morocho are required, authorized, and reviewed every 30 days.
--- NOTE | 2022-05-11 13:52 | CARE MANAGER ---
Addendum entered by Johanna Lolo 05/13/22 11:32: Genia aguirre/ [facility] stated that she can now accept this patient. I have updated patient's nurse and MD: we will discharge patient today. Addendum entered by Johannaandi Browne 05/13/22 10:32: Genia aguirre/ [facility] is now stating to hold patient due to cooperate stating there are issues with patient's insurance. I have updated patient's nurse (Donna) and I am waiting on a call back form Genia. Addendum entered by Johanna Lolo 05/13/22 08:11: This patient will discharge to [facility] ICF level of care today. COVID swab was collected and resulted negative yesterday. Addendum entered by Johannaandi Browne 05/12/22 12:20: Genia aguirre/ [facility] stated that she accept this patient once medically stable for discharge. COVID swab will be ordered prior to discharge. Dr Dodson has been updated. Addendum entered by Alicia Dominguez RN 05/11/22 14:52: Genia with [facility] plans to come in the morning to see patient. Likely will discharge Medicaid pending. Family notified. Original Note: Met with patient and his brother who is POA (Andrew) this morning to discuss discharge planning. Patient has been evaluated by PT/OT and recommendations are for ICF level of care. I have checked with facilities [facility] [place] and [place] are unable to offer a bed. [facility] and [facility] have been faxed the referral, and both are reviewing. CM will continue to follow.
[2022-05-11 16:00] VITALS: BP 147/72; PULSE 72; RESP 18; TEMP 36.6; O2SAT 99
--- NOTE | 2022-05-11 19:51 | PC.NURSE ---
pt has been pleasantly confused. bed alarm on for pt safety, as pt is very unsteady when standing/walking. family requesting nicotine patch and something for aggitation as pt was picking at iv and scratching self. per besson order buspar 10mg bid, first dose now and nicotine patch 21mg. pt pulled out iv, new iv placed in lt ac, tolerated well. pt has been up to chair majoritry of shift, chair alarm in place. pt alert to self only.
[2022-05-11 20:00] VITALS: BP 139/56; PULSE 73; RESP 17; TEMP 36.8; O2SAT 99
--- NOTE | 2022-05-11 20:26 | ECG_ITS ---
APPROVED REPORT Exam: Resting ECG HR:84 bpm ECG Measurements Heart Rate 84 AXES QRSd 89 QRS 64 QT 336 T 66 QTc 377 Conclusion ATRIAL FIBRILLATION ABNORMAL RHYTHM ECG UNCONFIRMED REPORT Electronically signed by : Colby Dodson MD 05/11/2022 21:17:40
[2022-05-12 04:00] VITALS: BP 147/77; PULSE 69; RESP 17; TEMP 36.9; O2SAT 97; BMI 20.1
--- NOTE | 2022-05-12 06:05 | PC.NURSE ---
pt is alert to name and birthday only, pt is confused to all other orientation, bed alarm in place, pt pulled iv out this am and fluids were left on standby currently for pt has pulled all iv's out thus far since admission, skin is dry and fragile, noted scattered scabs and bruising, pt is incontinent of urine at times, pt is cooperative, vss, no acute distress noted.
[2022-05-12 06:32] LABS: Basophils # 0.1 K/mm3 (0-0.2); Eosinophils # 0.6 K/mm3 (0.0-0.4); Monocytes # 0.5 K/mm3 (0.1-1.0); Neutrophils # 7.3 K/mm3 (1.8-7.8)
[2022-05-12 06:37] LABS: Chloride 116 mmol/L (98-107); Potassium 3.9 mmoL/L (3.5-5.1); Sodium 143 mmol/L (136-145)
[2022-05-12 06:39] LABS: Alanine Aminotransferase 37 U/L (12-78); Aspartate Amino Transferase 112 U/L (17-59); Blood Urea Nitrogen 21 mg/dl (9-20); Creatinine Clearance Estimated 53 mL/min (50-200); Estimated Glomerular Filt Rate 83 ml/min (>60); GFR (African American) 100 ML/MIN (>60)
[2022-05-12 06:40] LABS: Albumin Level 3.8 g/dl (3.5-5.0); Albumin/Globulin Ratio 1.3 (1.1-1.8); Alkaline Phosphatase 80 U/L (38-126); Anion Gap 9.9 mEq/L (5-15); Bilirubin,Total 0.8 mg/dl (0.2-1.3); Calcium 8.9 mg/dl (8.4-10.2); Carbon Dioxide 21 mmol/L (22.0-30.0); Globulin 2.9 g/dL (1.3-3.2); Glucose 90 mg/dl (74-100); Total Protein,Serum 6.7 g/dl (6.3-8.2)
[2022-05-12 06:48] LABS: Basophils % 0.9 % (0.1-2.0); Eosinophils % 5.5 % (0.1-12.0); Hematocrit 32.3 % (42.0-52.0); Lymphocytes # 2.6 K/mm3 (0.7-4.5); Lymphocytes % 23.2 % (10-50); Mean Corpuscular HGB Conc 32.2 g/dL (31.8-35.4); Mean Corpuscular Volume 99.5 fl (80-94); Mean Platelet Volume 8.8 fl (7.4-10.4); Monocytes % 4.6 % (1.7-9.3); Neutrophils % 65.8 % (37.0-80.0); Platelet Count 233 K/mm3 (142-424); Red Blood Count 3.25 M/mm3 (4.60-6.20); White Blood Count 11.1 K/mm3 (4.8-10.8)
[2022-05-12 06:51] LABS: Creatine Kinase 2105 U/L (55-170)
[2022-05-12 07:03] LABS: Hemoglobin 10.4 g/dL (14.1-18.0)
[2022-05-12 07:29] VITALS: BP 147/62; PULSE 83; RESP 18; TEMP 36.9; O2SAT 98
--- NOTE | 2022-05-12 08:18 | P.PN_ITS ---
Subjective *Date: 05/12/22 *Time: 08:18 Interval history: Patient has no complaints, has eaten very well. Has done well getting up and go to the bathroom. Remains profoundly demented. Medical Exam Vital signs and Labs for Last 24 Hours: Vital Signs Temp Pulse Resp BP Pulse Ox 05/12/22 07:29 98.5 F 83 18 147/62 H 98 05/12/22 04:00 98.4 F 69 17 147/77 H 97 05/11/22 20:00 99 05/11/22 20:00 98.2 F 73 17 139/56 L 99 05/11/22 16:00 97.8 F 72 18 147/72 H 99 Intake and Output 05/11/22 05/12/22 05/12/22 19:59 03:59 11:59 Intake Total 720 / 2541 1821 / 2541 Output Total 0 / 600 400 / 600 200 / 600 Balance 720 / 1941 -400 / 1941 1621 / 1941 Intake: Intake, Oral Amount 720 / 1080 360 / 1080 Intake, Total IV Amount 1461 / 1461 0.9 % Sodium Chloride 1,000 ml 1461 / 1461 @ 125 mls/hr IV .[facility] Rx#: [id number] Output: Output, Urine Amount 0 / 600 400 / 600 200 / 600 Other: Number of Voids 2 Number of Unmeasured Voids 1 0 0 Weight 125 lb 6.4 oz Patient Weight 05/12/22 11:59 Weight 125 lb 6.4 oz Laboratory Results - last 24 hr 05/12/22 06:09: WBC 11.1 H, RBC 3.25 L, Hgb 10.4 L D, Hct 32.3 L, MCV 99.5 H, MCH 32.0 H, MCHC 32.2, RDW 23.0 H, Plt Count 233, MPV 8.8, Neut % (Auto) 65.8, Lymph % (Auto) 23.2, [place] % (Auto) 4.6, Eos % (Auto) 5.5, Baso % (Auto) 0.9, Neut # (Auto) 7.3, Lymph # (Auto) 2.6, [place] # (Auto) 0.5, Eos # (Auto) 0.6 H, Baso # (Auto) 0.1 05/12/22 06:09: Sodium 143, Potassium 3.9, Chloride 116 H, Carbon Dioxide 21 L, Anion Gap 9.9, BUN 21 H, Creatinine 0.90, Estimated Creat Clear 53, Estimated GFR 83, Est GFR ( Amer) 100, Glucose 90, Calcium 8.9, Total Bilirubin 0.8, AST 112 H D, ALT 37, Alkaline Phosphatase 80, Total Creatine Kinase 2105 H* D, Total Protein 6.7, Albumin 3.8, Globulin 2.9, Albumin/Globulin Ratio 1.3 I & O for Labs for Last 24 Hours: Intake & Output 05/09/22 05/10/22 05/11/22 05/12/22 11:59 11:59 11:59 11:59 Intake Total 990 / 990 2541 / 2541 Output Total 200 / 200 600 / 600 Balance 790 / 790 194 / 194 Weight 128 lb 11.999 oz 125 lb 6.4 oz Comment:: Alert, pleasant. Various scratches are healing on his nose and arms. Heart rate regular, lungs clear, abdomen soft, no memory of recent events. Otherwise neurologically intact from a physical perspective. Assessment and Plan *Assessment and plan (1) Rhabdomyolysis: Status: Acute Category: Medical Code(s): M62.82 - Rhabdomyolysis Plan Plan will be to continue IV fluids. Check labs tomorrow. PT/OT evaluation. Patient does not have psychiatric issues, but has had progr essive dementia. He will clearly need long-term care placement depending on PT/OT evaluation. Plan update 05/12/2022-patient requires skilled care for ongoing therapy and nutritional evaluation. We will DC IV fluids as rhabdomyolysis is improved. Anxiety has been treated with BuSpar. Plan for skilled care transfer today if bed available.
--- NOTE | 2022-05-12 11:13 | PC.NURSE ---
1113 Patient brother and 3 of his friends at the bedside to visit.
--- NOTE | 2022-05-12 13:27 | PC.NURSE ---
[address] Patterson office. Left message with office nurse. Patient agitated and not wanting to stay in bed. Patient not wanting to cooperate with fall precautions.
--- NOTE | 2022-05-12 13:29 | EXP.DC.SUM ---
General Admission date:: 05/10/22 Discharge date: 05/12/22 HPI HPI HPI: 71-year-old male who suffers from dementia and possible seizure disorder, who has been declining over the past several months, has been in the care of his brother but apparently yesterday was found to be missing around 3 AM near his residence in [facility]. He was triggered for a Blunt Alert through the EMS/law enforcement system, and was found at 11 AM and was taken to the [facility] in [place], [place] for evaluation. He was found to have rhabdomyolysis, dehydration and worsening dementia. He was then transferred from the ER there to the ER here from the [facility] because of purported staffing issues at the [place] facility. In the ER here he was found to have elevated CPK levels, renal function was normal, he was given IV fluids and admitted to hospital. Patient has no memory of the events of yesterday and does not have ability to relay history. Hospital Course Hospital Course Hospital Course: Patient was admitted, rhabdomyolysis was treated with IV fluids and CPK improved. Kidney function remained normal. Patient ate well. PT evaluated him and felt that he would do well with skilled care stay and a bed was found for the patient [facility]. He is anxiety was treated with buspirone. He will be transferred there today, follow-up With our shelter service there. Exam Data for Last 24 hours Vital signs and Labs for Last 24 Hours: Temp Pulse Resp BP Pulse Ox 98.5 F 83 18 147/62 H 98 05/12/22 07:29 05/12/22 07:29 05/12/22 07:29 05/12/22 07:29 05/12/22 07:29 Laboratory Results - last 24 hr 05/12/22 06:09: WBC 11.1 H, RBC 3.25 L, Hgb 10.4 L D, Hct 32.3 L, MCV 99.5 H, MCH 32.0 H, MCHC 32.2, RDW 23.0 H, Plt Count 233, MPV 8.8, Neut % (Auto) 65.8, Lymph % (Auto) 23.2, [place] % (Auto) 4.6, Eos % (Auto) 5.5, Baso % (Auto) 0.9, Neut # (Auto) 7.3, Lymph # (Auto) 2.6, [place] # (Auto) 0.5, Eos # (Auto) 0.6 H, Baso # (Auto) 0.1 05/12/22 06:09: Sodium 143, Potassium 3.9, Chloride 116 H, Carbon Dioxide 21 L, Anion Gap 9.9, BUN 21 H, Creatinine 0.90, Estimated Creat Clear 53, Estimated GFR 83, Est GFR ( Amer) 100, Glucose 90, Calcium 8.9, Total Bilirubin 0.8, AST 112 H D, ALT 37, Alkaline Phosphatase 80, Total Creatine Kinase 2105 H* D, Total Protein 6.7, Albumin 3.8, Globulin 2.9, Albumin/Globulin Ratio 1.3 I & O for Last 24 hours: Intake & Output 05/10/22 05/11/22 05/12/22 05/13/22 11:59 11:59 11:59 11:59 Intake Total 990 / 990 2541 / 2541 120 / 120 Output Total 200 / 200 600 / 600 Balance 790 / 790 1941 / 1941 120 / 120 Weight 128 lb 11.999 oz 125 lb 6.4 oz Constitutional Constitutional: no acute distress *Routine HEENT Exam Head: Present normocephalic Eye: Present EOMI and PERRL ENT: Present mucous membranes moist *Routine Neck Exam Neck: Present supple; Absent lymphadenopathy *Routine Respiratory Exam Respiratory: Present CTA bilaterally *Routine Cardiovascular Exam Cardiovascular: Present RRR and murmur *Routine Abdominal Exam Abdominal: Present soft and normoactive bowel sounds; Absent tenderness *Routine Extremities Exam Extremities: Absent cyanosis, clubbing or edema Comments: Scattered rashes and bruises and scratches on face and hands, healing since admission *Routine Skin Exam Skin: Present warm; Absent rash *Routine Neurological Exam Neurological: Present alert and CN II-XII intact Comments: Globally weak, poor memory. Significant dementia. Somewhat anxious. No focal deficits Results Data Completed and Pending Labs on day of discharge: Labs from last 24 hours 05/12/22 05/12/22 06:09 06:09 WBC 11.1 H RBC 3.25 L Hgb 10.4 L D Hct 32.3 L MCV 99.5 H MCH 32.0 H MCHC 32.2 RDW 23.0 H Plt Count 233 MPV 8.8 Neut % (Auto) 65.8 Lymph % (Auto) 23.2 [place] % (Auto) 4.6 Eos % (Auto) 5.5 Baso % (Auto) 0.9 Neut # (Auto) 7.
--- NOTE | 2022-05-12 13:47 | PC.NURSE ---
1177 Patient confused. Oriented to self. Patient not compliant with fall precautions. Patient states, I just need to get my shoes on and get out of here. I need to pee. Patient wearing a diaper, urinal given to the patient. Patient states, I dont like to use that. Encouraged the patient to use the urinal, assistance offered. Patient refused.
[2022-05-12 13:52] LABS: Coronavirus 19, PCR Not Detected (NotDetected); Influenza A, PCR Not Detected (NotDetected); Influenza B, PCR Not Detected (NotDetected)
--- NOTE | 2022-05-12 15:01 | PC.NURSE ---
1500 Called report to JENNY Payan at the SNF.
[2022-05-12 16:00] VITALS: BP 145/70; PULSE 83; RESP 18; TEMP 36.8; O2SAT 93
--- NOTE | 2022-05-12 17:20 | PC.NURSE ---
1720 sitting up in a chair. 2 sisters at bedside. Chair alarm in use. Call light within reach.
[2022-05-12 19:48] VITALS: BP 159/70; PULSE 87; RESP 18; TEMP 36.7; O2SAT 97
[2022-05-12 20:00] VITALS: O2SAT 97
[2022-05-13 04:00] VITALS: BP 131/66; PULSE 70; RESP 17; TEMP 36.9; O2SAT 98; BMI 19.0
--- NOTE | 2022-05-13 05:27 | PC.NURSE ---
no acute distress, pt is pleasantly confused and alert to name only, bed alarm in place, vss, no other issues or concerns at this time.
[2022-05-13 07:19] VITALS: BP 151/76; PULSE 71; RESP 17; TEMP 36.6; O2SAT 99
--- NOTE | 2022-05-13 07:40 | PC.NURSE ---
0740 Patient sitting up in bed eating breakfast. Dr. Harkins at bedside. Plan for today is to discharge the patient to the SNF.
[2022-05-13 07:41] VITALS: O2SAT 95
--- NOTE | 2022-05-13 07:46 | PC.NURSE ---
0745 Scabs, abrasions and bruises noted to various parts of the body including left cheek, bilateral arms and bilateral legs and all are in various stages of healing. None of the locations appear to be infected at this time. Pain rates pain at 0 on a 10 scale.
--- NOTE | 2022-05-13 09:41 | PC.NURSE ---
0941 Called report to JENNY Lincoln at the SNF. Ambulance called for transport.
--- NOTE | 2022-05-13 11:03 | PC.NURSE ---
1010 Per Johanna with care management, the discharge to the SNF is currently on hold. Genia at the SNF attributes the hold due to an insurance issue. The ambulance has been notified and d/c is currently on hold until the SNF notifies the care management team of acceptance.
--- NOTE | 2022-05-14 10:27 | CARE MANAGER ---
Spoke with nurse at [facility] for post-discharge phone interview, no issues noted.
== END 2022-05-13 12:08 | DRG 558 ==
LOC: ER 20:58 → 2ND 21:37
PROVIDERS: Admitting Provider Family Medicine; Emergency Provider Emergency Medicine; PCP Internal Medicine Adolescent Medicine; Visit Provider Internal Medicine Adolescent Medicine
DX: M62.82 Rhabdomyolysis (principal); E86.0 Dehydration; E78.5 Hyperlipidemia, unspecified; I10 Essential (primary) hypertension; R56.9 Unspecified convulsions; F03.90 Unspecified dementia, unspecified severity, without behavioral disturbance, psychotic disturbance, mood disturbance, and anxiety
CPT/HCPCS: 36415; 72170; 80048; 80053; 81001; 82550; 82553; 83605; 83735; 84484; 85007; 85025; 87040; 93005; 97162; 97165; 99285; C9803; U0003; U0005

== ENCOUNTER 2022-07-13 09:25 | Outpatient (CLI) | payer MEDICARE, SELFPAY ==
[2022-07-13 09:33] VITALS: BMI 19.6
--- NOTE | 2022-07-13 10:30 | PC.NURSE ---
1030-attempted to notify [facility] with lab results for the hbg 9.0. will wait for call back.
[2022-07-13 10:33] LABS: Hematocrit 28.7 % (42.0-52.0)
--- NOTE | 2022-07-13 11:00 | PC.NURSE ---
1110-return call back from [facility]; cancel blood transfusion for today;pt ok to d/c home with brother.
== END 2022-07-13 11:20 | disposition home or self-care (01) ==
LOC: INF 09:27
PROVIDERS: PCP Nurse Practitioner Family; Visit Provider Nurse Practitioner Family
DX: D64.9 Anemia, unspecified (principal)
CPT/HCPCS: 36415; 85014; 85018

== ENCOUNTER 2022-07-29 09:58 | Day surgery (SDC) | payer MEDICARE, SELFPAY ==
[2022-07-28 09:46] VITALS: BMI 19.5
[2022-07-29] VITALS (10 sets, daily range): BP systolic 73–157; BP diastolic 43–70; PULSE 61–91; RESP 14–19; TEMP 36.1–36.4; O2SAT 96–100
--- NOTE | 2022-07-29 11:36 | P.PN_ITS ---
[facility] Disclaimer: The information contained in this section may have been updated after the patient was seen, as this information can be updated by other users. Medical History Atherosclerotic coronary vascular disease Dementia History of rhabdomyolysis Hyperlipidemia Hypertension Seizures Surgical History History of appendectomy Family History Other No significant family history Social History Smoking Status: Current every day smoker alcohol intake: never substance use type: denies use current occupational status: disabled Travel in the last 8 weeks: None household members: none housing: house lives independently: No service: No snf: No caffeine: Yes do you feel safe at home: Yes victim of physical abuse: No victim of emotional abuse: No victim of sexual abuse: No would you like helpful sources: No [facility] Anesthesia Checklist Patient Identification Patient Identification: Arm Band and Verbal (Name & ) Structural Data Admitted From: Home Planned Operative Procedure/s: E/C Consent for Planned Operative Procedure(s) Verified: Yes NPO Status Verified Time NPO: 00:00 Airway Assessment C-Spine Mobility Assessed: Yes TMJ Mobility Assessed: Yes Dentition: Edentulous Neurological Assessment Level of Consciousness: Awake Hx Seizures: No Numbness or tingling in extremities: No Anesthesia Plan Anesthesia Risk discussed: Yes Anesthesia Plan: Verified ASA Class: III Anesthesia Type: MAC
--- NOTE | 2022-07-29 12:47 | HMH.SCOPE ---
Procedure: Date: 07/29/22 Patient Date of :: 1950 Procedure Performed:: Diagnostic EGD Indications:: Chronic anemia, GI bleed Performing Provider:: Artie Davila MD Referring Provider:: Colby Dodson MD Sedation:: Propofol Procedure:: The gastroscope was gently passed through the incisoral orifice into the oral cavity and under direct visualization the esophagus was intubated. The endoscope was passed down the esophagus, through the stomach, and into the duodenum. Color, texture, mucosa, and anatomy of the esophagus, stomach, and duodenum were carefully examined with the scope. Findings:: Oropharynx: normal Esophagus: normal EG Junction: intact at 40 cm Cardia: normal Fundus: normal Body: normal Antrum: normal Duodenal bulb: normal Duodenum (second and third portion): normal Impression: Normal EGD Recommendations:: F/U with PCP Complications:: None Estimated blood obtained (mL): 0
--- NOTE | 2022-07-29 12:48 | P.PCN_ITS ---
Procedure: Date: 07/29/22 Patient Date of :: 1950 Procedure Performed:: Colonoscopy & polypectomy with snare Indications:: Chronic Anemia, GI bleed Performing Provider:: Artie Davila MD Referring Provider:: Colby Dodson MD Sedation:: Propofol Procedure:: After placing the patient in the left lateral decubitus position, the colonoscopy was gently inserted into the rectum and under direct visualization a dvanced to the cecum which was identified by transillumination in the right lower quadrant, identification of the ileocecal valve, appendiceal orifice, and cecal strap. Color, texture, mucosa, and anatomy of the colon were carefully examined with the scope. Findings:: Anal canal: normal Rectum: normal Sigmoid colon: 1.25 cm adenomatous polyp identified and removed with hot snare Descending colon: 0.75 cm adenomatous polyp identifie and removed with hot snare Splenic flexure: normal Transverse colon: normal without polyps or inflammatory changes Hepatic flexure: normal Ascending colon: normal without polyps or inflammatory changes Cecum: normal Terminal ileum: not visualized Note: overall quality of prep was poor Impression: polyps of descending and sigmoid colon Specimens:: Polyps Recommendations:: Follow up examination in about THREE years or so, sooner if clinically indicated. Complications:: None Estimated blood obtained (mL): 0
--- NOTE | 2022-07-29 13:50 | HMH.SCOPE ---
Procedure: Date: 07/29/22 Patient Date of :: 1950 Procedure Performed:: Screening colonoscopy Indications:: Personal history of polyps Performing Provider:: Artie Davila MD Referring Provider:: Colby Dodson MD Sedation:: Propofol Procedure:: After placing the patient in the left lateral decubitus position, the colonoscopy was gently inserted into the rectum and under direct visualization advanced to the cecum which was identified by transillumination in the right lower quadrant, identification of the ileocecal valve, appendiceal orifice, and cecal strap. Color, texture, mucosa, and anatomy of the colon were carefully examined with the scope. Findings:: Anal canal: normal Rectum: normal Sigmoid colon: normal without polyps or inflammatory changes Descending colon: normal without polyps or inflammatory changes Splenic flexure: normal Transverse colon: normal without polyps or inflammatory changes Hepatic flexure: normal Ascending colon: normal without polyps or inflammatory changes Cecum: normal Terminal ileum: not visualized Impression: Normal colonoscopy Recommendations:: Follow up examination in about FIVE years or so, sooner if clinically indicated in view of personal history of polyps Complications:: None Estimated blood obtained (mL): 0
== END 2022-07-29 14:15 | disposition home or self-care (01) ==
PROVIDERS: PCP Nurse Practitioner Family; Visit Provider Internal Medicine Gastroenterology
PROC: 0DJ08ZZ Inspection of Upper Intestinal Tract, Via Natural or Artificial Opening Endoscopic (ICD-10-PCS; CPT 43235; principal; 2022-07-29 11:30)
DX: K92.2 Gastrointestinal hemorrhage, unspecified (principal); D64.9 Anemia, unspecified; D12.5 Benign neoplasm of sigmoid colon; D12.4 Benign neoplasm of descending colon; Z79.899 Other long term (current) drug therapy
CPT/HCPCS: 43239; 45385; 88305; J2704

== ENCOUNTER → 2022-09-16 13:19 | Outpatient (CLI) | payer MEDICARE, SELFPAY ==
[2022-09-16 14:05] LABS: Basophils % 0.4 % (0.1-2.0); Eosinophils # 0.6 K/mm3 (0.0-0.4); Eosinophils % 11.9 % (0.1-12.0); Hematocrit 35.3 % (42.0-52.0); Hemoglobin 11.2 g/dL (14.1-18.0); Lymphocytes # 2.2 K/mm3 (0.7-4.5); Lymphocytes % 46.7 % (10-50); Mean Corpuscular HGB Conc 31.7 g/dL (31.8-35.4); Mean Corpuscular Hemoglobin 32.1 pg (27.0-31.2); Mean Corpuscular Volume 101.2 fl (80-94); Mean Platelet Volume 9.5 fl (7.4-10.4); Monocytes # 0.2 K/mm3 (0.1-1.0); Monocytes % 4.7 % (1.7-9.3); Neutrophils # 1.7 K/mm3 (1.8-7.8); Neutrophils % 36.2 % (37.0-80.0); Platelet Count 256 K/mm3 (142-424); Red Blood Count 3.49 M/mm3 (4.60-6.20); Red Cell Distribution Width 22.3 % (11.5-17.5); White Blood Count 4.8 K/mm3 (4.8-10.8)
[2022-09-16 15:36] LABS: Iron 139 ug/dL (49-181)
[2022-09-16 15:45] LABS: Total Iron Binding Capacity 276 ug/dL (261-462)
[2022-09-16 16:08] LABS: Thyroid Stimulating Hormone 1.67 uIU/mL (0.465-4.68)
[2022-09-16 17:02] LABS: Ferritin 1280 ng/ml (17.9-464)
[2022-09-16 19:05] LABS: Vitamin B12 525 pg/mL (239-931)
[2022-09-16 19:06] LABS: Folate > 20.00 ng/mL
[2022-09-18 19:35] LABS: Haptoglobin 97 mg/dL (34-355)
[2022-09-20 15:29] LABS: Albumin 4.5 g/dL (2.9-4.4); Alpha-1-Globulin 0.2 g/dL (0.0-0.4); Alpha-2-Globulin 0.7 g/dL (0.4-1.0); Gamma Globulin 1.3 g/dL (0.4-1.8); Immunoglobulin A, Qn 180 mg/dL (61-437); Immunoglobulin G, Qn 1299 mg/dL (603-1613); Immunoglobulin M, Qn 132 mg/dL (15-143); Protein, Total 7.6 g/dL (6.0-8.5)
[2022-11-08 08:20] LABS: Free Kappa Lt Chains 55.2; Free Lambda Lt Chains 27.3
== END ==
PROVIDERS: PCP Internal Medicine Adolescent Medicine; Visit Provider Internal Medicine Medical Oncology
DX: D64.9 Anemia, unspecified (principal)
CPT/HCPCS: 36415; 82607; 82728; 82746; 82784; 83010; 83540; 83550; 83883; 84155; 84165; 84443; 85025; 86334

== ENCOUNTER → 2022-12-30 13:32 | Outpatient (CLI) | payer MEDICARE, SELFPAY ==
--- NOTE | 2022-12-30 13:42 | XR_ITS ---
FINAL REPORT CLINICAL HISTORY: right knee pain FINDINGS: RIGHT KNEE Three views of the right knee reveal no evidence of fracture or dislocation. The bony alignment is normal. The joint spaces are preserved. There is a small joint effusion. Meniscal calcifications are noted. There are vascular calcifications. IMPRESSION: No acute bony abnormality. Reviewed, Interpreted and Dictated by Isauro Smyth III, MD Transcribed by Piper Baca Authenticated and . [facility]
--- NOTE | 2022-12-30 13:42 | XR_ITS ---
FINAL REPORT CLINICAL HISTORY: Left knee pain FINDINGS: LEFT KNEE Three views of the left knee reveal no evidence of fracture or dislocation. The bony alignment is normal. The joint spaces are preserved. There is a small joint effusion. Meniscal calcifications are noted. There are vascular calcifications. IMPRESSION: No acute abnormality identified. Reviewed, Interpreted and Dictated by Isauro Smyth III, MD Transcribed by Piper Baca Authenticated and [facility]
== END ==
PROVIDERS: PCP Internal Medicine Adolescent Medicine; Visit Provider Orthopaedic Surgery
DX: M25.561 Pain in right knee (principal); M25.562 Pain in left knee
CPT/HCPCS: 73562

== ENCOUNTER 2023-06-21 16:47 | Outpatient (POV) | payer MEDICARE, SELFPAY | END 2023-06-21 23:59 | disposition home or self-care (01) | LOC: SC 16:47 | PROVIDERS: PCP Internal Medicine Adolescent Medicine; Visit Provider Dermatology | DX: Z00.00 Encounter for general adult medical examination without abnormal findings (principal) ==

== ENCOUNTER 2023-08-31 15:58 | Emergency (ER) | payer MEDICARE, MEDICAID, SELFPAY ==
[2023-08-31 15:58] VITALS: BP 152/69; PULSE 73; RESP 15; TEMP 36.8; O2SAT 97; BMI 19.2
[2023-08-31 16:00] VITALS: BP 138/65; PULSE 65; O2SAT 98
--- NOTE | 2023-08-31 16:09 | ED_ITS ---
Discharge Plan Disposition Patient Disposition: Home, Self-Care Chief Complaint: PAIN Prescriptions Prescriptions: No Action levetiracetam 500 mg tablet 500 mg PO BID Patient Comments: TAKE 1 TABLET BY MOUTH TWICE DAILY aspirin 81 mg tablet,delayed release (DR/EC) 81 mg PO DAILY Rx Instructions: Take 1 tablet by mouth once daily amlodipine 5 mg tablet 5 mg PO DAILY Patient Comments: TAKE 1 TABLET BY MOUTH ONCE DAILY FOR 90 DAYS folic acid 1 mg tablet 1 mg PO DAILY Patient Comments: TAKE 1 TABLET BY MOUTH ONCE DAILY ferrous sulfate 325 mg (65 mg iron) Tablet 325 mg PO BID omeprazole 20 mg Capsule,Delayed Release(Dr/Ec) 20 mg PO BID memantine [Namenda] 5 mg Tablet 5 mg PO BID buspirone 10 mg tablet 10 mg PO BID Referrals Follow up/Referrals: Colby Dodson MD [Primary Care Provider] - See instructions Activity Restrictions/Add. Instructions Additional Instructions/Restrictions: At this time it was felt you are safe to be discharged home. If new or worsening symptoms please do not hesitate to return the emergency department. Clinical Impressions Clinical Impression: Encounter for medical assessment Discharge ED Provider: Yogesh Gonzalez General Adult HPI General Chief complaint: PAIN Stated complaint: NECK PAIN Time Seen by Provider: 08/31/23 16:02 Mode of Arrival: EMS Source of Information: Patient and EMS Limitations: No Limitations Description of Symptoms (Recalled from ER Triage Doc. by RN): per ems report call was made to ems for increasing pain. pt reports that he is in no pain at this current moment in time. pt does have a hx of dementia. pt reports he is off balance and that is the only thing that he notices is different. History of Present Illness HPI narrative: Patient is a 72-year-old male with past medical history of hypertension, dementia, hyperlipidemia who presents emergency department for evaluation of ear pain. Patient states that he has had intermittent right-sided ear pain but has no ear pain or neck pain currently. He is to initiate ofloxacin drops starting tonight. No other acute complaints at this time. He denies gait changes, current headache, current neck pain, any other acute complaints at this time. Patient's brother is at bedside who also confirms that he has no acute complaints. Related Data Home Medications Medication Instructions Recorded Confirmed levetiracetam 500 mg tablet 500 mg PO BID SEIZURES 11/17/21 01/18/23 aspirin 81 mg tablet,delayed 81 mg PO DAILY heart health 01/05/22 01/18/23 release amlodipine 5 mg tablet 5 mg PO DAILY High blood pressure 05/11/22 01/18/23 folic acid 1 mg tablet 1 mg PO DAILY Supplement 05/11/22 01/18/23 buspirone 10 mg tablet 10 mg PO BID Depression 07/28/22 01/18/23 ferrous sulfate 325 mg (65 mg 325 mg PO BID Supplement 07/28/22 01/18/23 iron) tablet memantine 5 mg tablet (Namenda) 5 mg PO BID ALZHEIMERS 07/28/22 01/18/23 omeprazole 20 mg capsule,delayed 20 mg PO BID Reflux/Acid reflux 07/28/22 01/18/23 release Allergies Allergy/AdvReac Type Severity Reaction Status Date / Time No Known Allergies Allergy Verified 09/16/22 12:39 [facility] Disclaimer: The information contained in this section may have been updated after the patient was seen, as this information can be updated by other users. Medical History Atherosclerotic coronary vascular disease Dementia History of rhabdomyolysis Hyperlipidemia Hypertension Seizures Surgical History History of appendectomy Family History Other No significant family history Social History Smoking Status: Current every day smoker alcohol intake: never substance use type: denies use current occupational status: disabled Travel in the last 8 weeks: None household members: none housing: house lives independently: No service: No [place] [facility]: No caffeine: Yes do you feel safe at home: Yes victim of physical abuse: No victim of emotional abuse: No victim of sexual abuse: No would you like helpful sources: No ROS Obtained: Yes Systems reviewed as appropriate & no additional complaints except as documented Physical Exam General General appearance: alert and in no apparent distress Head Head exam: atraumatic and normocephalic Eye Eye exam: Present PERRL and EOMI ENT ENT exam: Present mucous membranes moist, TM's normal bilaterally and other (Some irritation of the right external auditory canal. Pinna sign negative) Neck Neck exam: Present normal inspection Chest Chest inspection: Present normal inspection and symmetric chest wall rise Respiratory Respiratory exam: Present normal lung sounds bilaterally; Absent respiratory distress Cardiovascular Cardiovascular exam: Present regular rate and normal rhythm Abdominal Exam Abdominal exam: Present soft; Absent tenderness Extremities Exam Extremities exam: Present normal inspection Neurological Exam Neurological exam: Present alert; Absent motor sensory deficit Psychiatric Psychiatric exam: Present normal affect Skin Skin exam: Present warm and dry Medical Decision Making Davis Inquiry Pt receiving controlled substance: No Vital Signs: 08/31/23 15:58 08/31/23 16:00 Temperature 98.3 F Temperature Source Oral Pulse Rate 65 Pulse Rate [Left Radial] 73 Respiratory Rate 15 Blood Pressure 138/65 Blood Pressure [Right Arm] 152/69 H Blood Pressure Mean [Right Arm] 96 02 Sat by Pulse Oximetry 97 98 Oxygen Delivery Method Room Air Room Air Medical Decision Narrative: In summary patient is 72-year-old male past medical history described above presents emergency department for medical evaluation. Patient is hemodynamically stable nontoxic-appearing upon arrival, afebrile. Patient has equivocal otitis externa on the right for which she is already prescribed ofloxacin drops that he is to receive tonight. He has no acute complaints. Family member at bedside confirms that he has no acute complaints. Given that there is no emergent problem that needs evaluation patient is appropriate for discharge home at this time and was given return precautions and family member verbalized understanding. Critical Care Critical Care Time Critical Care Time: No
[2023-08-31 17:23] VITALS: BP 131/88; PULSE 85; RESP 14; TEMP 36.6
== END 2023-08-31 17:24 | disposition home or self-care (01) ==
PROVIDERS: Emergency Provider Emergency Medicine; PCP Internal Medicine Adolescent Medicine
DX: Z00.8 Encounter for other general examination (principal)
CPT/HCPCS: 99281

== ENCOUNTER 2024-04-15 18:34 | Emergency (ER) | payer MEDICARE, MEDICAID, SELFPAY ==
[2024-04-15 18:34] VITALS: BP 168/73; PULSE 61; RESP 15; TEMP 36.6; O2SAT 99; BMI 22.1
[2024-04-15 18:37] VITALS: BP 168/73; PULSE 62; O2SAT 96
[2024-04-15 18:45] VITALS: PULSE 65; O2SAT 98
--- NOTE | 2024-04-15 18:52 | ED_ITS ---
Discharge Plan Disposition Patient Disposition: Home, Self-Care Prescriptions Prescriptions: No Action levetiracetam 500 mg tablet 500 mg PO BID Patient Comments: TAKE 1 TABLET BY MOUTH TWICE DAILY aspirin 81 mg tablet,delayed release (DR/EC) 81 mg PO DAILY Rx Instructions: Take 1 tablet by mouth once daily amlodipine 5 mg tablet 5 mg PO DAILY Patient Comments: TAKE 1 TABLET BY MOUTH ONCE DAILY FOR 90 DAYS folic acid 1 mg tablet 1 mg PO DAILY Patient Comments: TAKE 1 TABLET BY MOUTH ONCE DAILY ferrous sulfate 325 mg (65 mg iron) Tablet 325 mg PO BID omeprazole 20 mg Capsule,Delayed Release(Dr/Ec) 20 mg PO BID memantine [Namenda] 5 mg Tablet 5 mg PO BID buspirone 10 mg tablet 10 mg PO BID Referrals Follow up/Referrals: Provider,Referral, MD [Primary Care Provider] - See instructions Activity Restrictions/Add. Instructions Additional Instructions/Restrictions: No evidence of urinary tract infection. Patient is keenly alert at his mental baseline after discussing with his power of assistant county attorney, his brother we all agree that there is no emergent intervention needed. Specifically further sedation or admission to psychiatric facility as he is currently having no recollection of making suicidal statements denies any suicidal ideation at the moment. Therefore after discussion with his power of assistant county attorney he was in agreement with our team we do not believe that he needs any further psychiatric evaluation at the moment. Please continue to have further discussions with the power of assistant county attorney regarding downstream management if continued statements are made. Clinical Impressions Clinical Impression: Dementia, Encounter for medical screening examination Instructions Patient Instructions: DI for Altered Mental Status Print Language Print Language: Malay Discharge ED Provider: Francis Hoskins General Adult [facility] General Chief complaint: Altered Mental Status Stated complaint: AMS Time Seen by Provider: 04/15/24 18:40 Mode of Arrival: EMS Source of Information: Patient Limitations: No Limitations Description of Symptoms (Recalled from ER Triage Doc. by RN): pt presents to ED from [facility]. per report from facilty, pt has dementia, has been restless, wondering around the facilty. staff report today they found him in someone else's room. staff report that pt stated that he did not want to live anymore, and would take a gun and shoot himself. staff [facility] state that they had to send him out for clearance. pt denies all suicide/homi cide ideation. ems and medic state that pt denies SI/HI. pt does have baseline dementia, only alert to self. History of Present Illness HPI narrative: Patient is a 73-year-old male sent in by [facility] for concern for possible suicidal ideation. History is obtained from the patient however the patient has chronic disorientation/dementia and history is unreliable from the patient. History is also obtained from the penitentiary and from the patient's brother who is his power of assistant county attorney. One of the nurses at the [facility] found the patient crying stating that he did not want to live anymore when asked further the patient said he would find a gun. However the patient has no access to a gun lives in a penitentiary and according to his brother always talks out of his head. Patient currently denies being suicidal does not recall saying these things and states even if he did that he would have been joking. Patient has no complaints at the moment penitentiary was concerned about a urinary tract infection and asked us to obtain a urinalysis. Patient has no fevers or symptoms of UTI. Related Data Home Medications ?Medication ?Instructions ?Recorded ?Confirmed levetiracetam 500 mg tablet 500 mg PO BID SEIZURES 11/17/21 01/18/23 aspirin 81 mg tablet,delayed 81 mg PO DAILY heart health 01/05/22 01/18/23 release amlodipine 5 mg tablet 5 mg PO DAILY High blood pressure 05/11/22 01/18/23 folic acid 1 mg tablet 1 mg PO DAILY Supplement 05/11/22 01/18/23 buspirone 10 mg tablet 10 mg PO BID Depression 07/28/22 01/18/23 ferrous sulfate 325 mg (65 mg 325 mg PO BID Supplement 07/28/22 01/18/23 iron) tablet memantine 5 mg tablet (Namenda) 5 mg PO BID ALZHEIMERS 07/28/22 01/18/23 omeprazole 20 mg capsule,delayed 20 mg PO BID Reflux/Acid reflux 07/28/22 01/18/23 release Allergies Allergy/AdvReac Type Severity Reaction Status Date / Time No Known Allergies Allergy Verified 09/16/22 12:39 [facility] Disclaimer: The information contained in this section may have been updated after the patient was seen, as this information can be updated by other users. Medical History Atherosclerotic coronary vascular disease Dementia History of rhabdomyolysis Hyperlipidemia Hypertension Seizures Surgical History History of appendectomy Family History Other No significant family history Social History Smoking Status: Current every day smoker alcohol intake: never substance use type: denies use current occupational status: disabled Travel in the last 8 weeks: None household members: none housing: house lives independently: No service: No penitentiary: No caffeine: Yes do you feel safe at home: Yes victim of physical abuse: No victim of emotional abuse: No victim of sexual abuse: No would you like helpful sources: No Have you lived/traveled outside [place] in past 30 days?: No Contact w/someone who lives/traveled outside US past 30 days?: No Exposure to someone with infectious disease in past 14 days?: No Do you have a fever (greater than 100.4 F or 38 C)?: No Have you tested positive for COVID-19: No Exposed to someone with COVID-19 in past 14 days?: No Do you have a sore throat?: No Do you have a cough?: No Do you have any weakness?: No Do you have any diarrhea?: No Are you experiencing any unusual bleeding?: No Do you have any muscle aches/pain?: No Do you have any abdominal pain?: No Are you experiencing loss of taste or smell?: No Other Medical History Have you received the Flu Vaccine for this season: No Have you received the Pneumonia Vaccine: Yes ROS Obtained: Yes All systems reviewed & no additional complaints except as documented Physical Exam General General appearance: alert and in no apparent distress Respiratory Respiratory exam: Present normal lung sounds bilaterally Cardiovascular Cardiovascular exam: Present regular rate and normal rhythm Neurological Exam Neurological exam: Present alert; Absent oriented X3 (Patient only oriented to self) Medical Decision Making Medical Records Screening: Per USPSTF and CDC recommendations, given the prevalence of disease in our region, it is our hospital?s policy to screen for HIV and viral Hepatitis for all patients aged 18 and over and those with ongoing risk factors. Davis Inquiry Pt receiving controlled substance: No Vital Signs: 04/15/24 18:34 04/15/24 18:37 Temperature 97.8 F Temperature Source Oral Pulse Rate 62 Pulse Rate [Left Radial] 61 Respiratory Rate 15 Blood Pressure 168/73 H Blood Pressure [Right Arm] 168/73 H Blood Pressure Mean [Right Arm] 104 02 Sat by Pulse Oximetry 99 96 Oxygen Delivery Method Room Air Room Air Lab Data Lab results reviewed: Yes I reviewed the patient's lab results. Lab Results 04/15/24 18:52: Urine Color Yellow, Urine Appearance Clear, Urine pH 6.0, Ur Specific [place] 1.025, Urine Protein Negative, Urine Glucose (UA) Negative, Urine Ketones Negative, Urine Blood Negative, Urine Nitrate Negative, Urine Bilirubin Negative, Urine Urobilinogen 0.2, Ur Leukocyte Esterase Negative Orders (Tests/Meds): ORDERS Category Date Time Status HIV Combo Stat Lab 04/15/24 18:49 Ordered Hepatitis C Ab Qual. W/ RFX Stat Lab 04/15/24 18:49 Ordered UA [Urinalysis and Microscopic] Stat Lab 04/15/24 18:52 Results Medical Decision Narrative: Well-appearing nontoxic 73-year-old who has a nonfocal neurologic exam who is very alert well-kept and at his neurologic baseline according to his brother. I spoke to his brother Andrew who is his power of assistant county attorney. His brother states that he always talks out of his head. His brother believes that this was not a credible threat and felt that he did not need to come to the hospital which I agree with. The patient himself denies being suicidal denies recalling any suicidal comments and states that even if he was to stay symptom with that he would have been kidding. He is adamant right now that he does not want to . He has no other signs and symptoms of a medical emergency. The penitentiary believes that he was a little bit more restless than normal and asked for us to obtain urinalysis. I will attempt to get the patient to spontaneously void for us but do not believe that clinically it is indicated for us to do a catheterization. I also do not believe any further emergent workup is warranted. Additionally do not believe that sedating this patient or putting in a psychiatric facility would be beneficial to him. The brother who is his power of assistant county attorney agrees. Therefore we will be sending him back to the penitent[facility]. UA negative on reassessment patient remains very stable was discharged back to [facility]iary. Critical Care Critical Care Time Critical Care Time: No
[2024-04-15 18:58] LABS: Microscopic, Urine URINE MICROSCOPIC (MICROSCOPIC)
[2024-04-15 19:01] LABS: Appearance,Urine CLEAR (Clear); Bilirubin,Urine Negative (Negative); Blood, Urine Negative (Negative); Color,Urine YELLOW (Yellow); Glucose,Urine (UA) Negative (Negative); Ketones,Urine Negative (Negative); Leukocyte Esterase,Urine Negative (Negative); Nitrate,Urine Negative (Negative); Protein,Urine Negative (Negative); Specific Gravity, Urine 1.025 (1.005-1.030); Urobilinogen,Urine 0.2 EU/dl (0.2)
[2024-04-15 19:34] VITALS: BP 168/73; PULSE 61; RESP 18; TEMP 36.6; O2SAT 99
--- NOTE | 2024-04-15 19:39 | PC.NURSE ---
REPORT CALLED TO WILFRIDO AT [facility] FOR REPORT. EMS ARRIVED FOR PATIENT TRANSPORT BACK TO FACILITY.
[2024-04-15 19:44] LABS: Bacteria,Urine 1+ /lpf; Mucus,Urine 3+ /lpf; RBC,Urine Occasional #/hpf (0-3); WBC,Urine Occasional #/hpf (0-3)
== END 2024-04-15 19:53 | disposition home or self-care (01) ==
PROVIDERS: Emergency Provider Student in an Organized Health Care Education/Training Program
DX: R41.82 Altered mental status, unspecified (principal); F03.90 Unspecified dementia, unspecified severity, without behavioral disturbance, psychotic disturbance, mood disturbance, and anxiety; Z13.9 Encounter for screening, unspecified
CPT/HCPCS: 81001; 99283

== ENCOUNTER 2024-12-05 19:18 | Emergency (ER) | payer MEDICARE, MEDICAID, SELFPAY ==
--- OUTSIDE RECORDS SUMMARY | 2024-10-30 07:30 | XMS_ITS | Continuity of Care Document ---
Author Organization [address] [place] [address] [address] [facility] [address] [place] [address] Phone Care Team Providers Care Senior Environmental Practice Leader Name Role Phone Jean Carlos JIMÉNEZ, Hemalatha Unavailable Jacey vailable Allergies, Adverse Reactions, Alerts Substance Reaction Status Criticality No Known Allergies Active No Inform ation Medications Medication Instructions Dosage Effective Dates (start - stop) Status Comments tramadol 50 mg tablet - Acti ve FeroSul 325 mg (65 mg iron) tablet - Active escitalopram 5 mg tablet - A ctive buspirone 7.5 mg tablet - Ac tive acetaminophen 500 mg tablet - Active Triple Antibiotic 3.5 mg-400 unit-5,000 unit/gram topical ointment - Active cephalexin 500 mg capsule - Active cephalexin 250 mg capsule - Active levetiracetam 500 mg tablet - Active amlodipine 5 mg tablet - Act celeste memantine 5 mg tablet - Acti ve folic acid 1 mg tablet - Act celeste omeprazole 20 mg capsule,delayed release - Active ofloxacin 0.3 % ear drops - Active levofloxacin 500 mg tablet - Active levofloxacin 250 mg tablet - Active cefdinir 300 mg capsule - Ac tive ondansetron HCl 4 mg tablet - Active oseltamivir 75 mg capsule - Active nicotine 14 mg/24 hr daily transdermal patch - Active Mucus Relief ER 600 mg tablet, extended release - Active polyethylene glycol 3350 17 gram/dose oral powder - Active buspirone 10 mg tablet - Act celeste Problems Condition Type Effective Dates (start - stop) Clini jose Status Comments No Known Problems Procedures Procedure Date [facility] NF CARE SF [facility] 10 Trim normal nail, any number Debride mycotic nails 5 or less 025 COMPRE OPH EXAM NEW PT 1/> Trim Dystrophic nail(s) DEBRIDE NAIL 1- Trim nail(s) DEBRIDE NAIL 1- Trim nail(s) DEBRIDE NAIL 1- [facility] NF CARE [facility] 20 PARING/CUTG B9 HYPRKER LES 1 DEBRIDE NAIL 1- Trim nail(s) PARING/CUTG B9 HYPRKER LES 1 DEBRIDE NAIL 1- Trim nail(s) Advance Directives Directive Yes / No Effective Date File Name No Information Encounters Encounter Description Practice Location Reason(s) For Visit Diagnoses Date Provider Providers Copied on Encounter [facility] C[facility] [address] [place] [address], [address] [facility] [address], [place], [id number], [place] tel:[phone] [facility] ear care exam (chief complaint) Unspecified hearing loss, bilateral [place] car[place] Hemalatha. [address], [address], [place], [address], [place]. Referring Provider: Colby Dodson. [address] [place] [address], [address], [place], [place], [id number], [place] tel:[phone] [facility] Nail dystrophyOnych ogryphosisOthe r specified peripheral vascular diseases [address] [place], [place]. [facility], [address] [place], [place] [address] [address], [place], [place], [id number], [place] tel:[phone] [facility] Blurry vision (chief complaint) Age-related nuclear cataract, bilateralPresb yopiaUnspecifi ed retinal disorder 5 [place], [place]. Referring Provider: Colby Dodson. [facility], [address] [place] [address] [address], [place], [place], [id number], [place] tel:[phone] [facility] Nail dystrophyOnych ogryphosisOthe r specified peripheral vascular diseases 5 [place], [place]. [facility], [address] [place], [place] [address], [place], [place], [id number], [place] tel:[phone] [facility] Other abnormalities of gait and mobilityOther specified peripheral vascular diseasesOnycho gryphosisNail dystrophy 5 [place], [place]. [facility] NF CARE LOW MDM 20 [facility], [address] [place], [place] [address], [place], [place], [id number], [place] tel:[phone] [facility] Nail dystrophyOnych ogryphosisCorn s and callositiesOth er specified peripheral vascular diseases 4 [place], [place]. [facility], [address] [place], [place] [address], [place], [place], [id number], [place] tel:[phone] [facility] Tinea unguiumNail dystrophyCorns and callositiesOth er specified peripheral vascular diseases 4 Avinash Solorzano. [address] [place] [address] Rd, [address], [place], [address], [place]. [facility], [address] [place] [address] [address], [place], [place], [id number], [place] tel:[phone] [facility] No Information 4 Avinash Solorzano. [address], [address], [place], [address], [place]. [address] [place] [address], [address], [place], [place], [id number], tel:[phone] [facility] Nail dystrophyTinea unguiumCorns and callositiesOth er specified peripheral vascular diseases 4 Avinash [place] [address], [address], [place], [address], [place]. Referring Provider: Colby Dodson. Family History Family Member Type Diagnosis Age At Onset No Information Payers Payer name Insurance type Covered green party ID Tamara kwan(s) [employer] Medicare CI [id number] Medicaid [facility] [id number] Social History Type Description Quantity Date Captured Comments Alcohol Use Details Unknown Caffeine Use Details Unknown Tobacco Use Status No Information Smoking Status No Information Sex Male Chief Complaint And Reason For Visit From encounter dated '10/30/2024 11:30'. ear care exam (chief complaint) Reason For Referral Reason For Referral No Information Plan Of Treatment Date Type Action Status Appointment Walter Morocho BOOKED Appointment Walter Morocho BOOKED Patient Education Learning About Your Ear s completed History Of Present Illness Encounter Date Complaint History Of Prese nt Illness Blurry vision The 73 year old patient presents for evaluation of Blurry vision in the right eye and left eye. Readers bother him., Denies itching, burning. Has scars on right side of nose from a tree branch (looks like shingles as doesn't cross midline- all dry) Functional Status Date Functional Assessmen t No Information Instructions Date Instruction Additional Infor mation may refer to audiolo gy if pt, family, and/or facility wish to pursue. Follow up in 6-9 months or sooner if needed. Related to Unspecified hearing loss, bilateral Discussed using comp ression stockings to assist in localize swelling and venous return, and the long term care social worker benefits of using compression stockings. Reinforced the importance of proper adherence to using the tonia hose, and compression stockings. Will continue to monitor. Related to Other specified peripheral vascular diseases All of the documente d thickened nails (which includes those nails 2 mm or more in thickness, and possible mycotic component to the nails) were debrided in both length and thickness using both a nail nipper and an electric rotary jewel grinder in an atraumatic fashion as needed ; this was performed in an attempt to prevent pain and reduce risk of infection. Alcohol applied to the digits afterwards. PT tolerated procedure well. Related to Onychogryphosis All documented dystr ophic nails were reduced in length as needed to prevent pain and other symptoms. Patient tolerated procedure well. Related to Nail dystrophy Follow up - Return i n 6-9 months for dilated fundus exam. Return in 6-9 months for fundus photos. Impression/Plan - ~1 DD well pigmented ret scar OS sup to macula. Recheck 6-9 mos and consider photo Related to Unspecified retinal disorder Impression/Plan - OT C +2.50 demonstrated and brought near [facility] to 20/40 or better Related to Presbyopia Impression/Plan - 2+ NS but no distance refractive error and pt happy with vision. Recheck 1 year Related to Age-related nuclear cataract, bilateral Discussed using comp ression stockings to assist in localize swelling and venous return, and the group home benefits of using compression stockings. Reinforced the importance of proper adherence to using the tonia hose, and compression stockings. Will continue to monitor. Related to Other specified peripheral vascular diseases All of the documente d thickened nails (which includes those nails 2 mm or more in thickness, and possible mycotic component to the nails) were debrided in both length and thickness using both a nail nipper and an electric rotary jewel grinder in an atraumatic fashion; this was performed in an attempt to prevent pain and reduce risk of infection. Alcohol applied to the digits afterwards. Related to Onychogryphosis All documented dystr ophic nails were reduced in length as needed to prevent pain and other symptoms. Related to Nail dystrophy All documented dystr ophic nails were reduced in length as needed to prevent pain and other symptoms. Related to Nail dystrophy All documented thick ened nails were debrided using a rotary tool and nail nipper. Related to Onychogryphosis Discussed using comp ression stockings to assist in localize swelling and venous return, and the long term care social worker benefits of using compression stockings. Reinforced the importance of proper adherence to using the tonia hose, and compression stockings. Will continue to monitor. Related to Other specified peripheral vascular diseases PT instructed to con tinue use of DME equipment for safety, mobility, and reducing risk of falls/injury. Will continue to monitor. Pt denies recent falls in the past 3 months. Related to Other abnormalities of gait and mobility This is a chronic st able problem, Will reassess and follow up in 2-3 months Related to Other specified peripheral vascular diseases All documented thick ened nails were debrided using a rotary tool and nail nipper. Related to Onychogryphosis All documented dystr ophic nails were reduced in length as needed to prevent pain and other symptoms. Related to Nail dystrophy Toenails 1 b/l were debrided in length and thickness without incident. Follow up in 2-3 months. Related to Tinea unguium All dystrophic nails were debrided in length and thickness as needed to prevent pain and other symptoms. Related to Nail dystrophy All of the calluses were debrided/pared to prevent further tissue breakdown and pain. Related to Corns and callosities All of the calluses were debrided/pared to prevent further tissue breakdown and pain. Related to Corns and callosities Toenails 1 b/l were debrided in length and thickness without incident. Follow up in 2-3 months. Related to Tinea unguium All dystrophic nails were debrided in length and thickness as needed to prevent pain and other symptoms. Related to Nail dystrophy Assessments Type Assessment Date assessment Unspecified hearing loss, bilate neetu Patient Care Teams Name Effective Dates (start - stop) Status Members No Information
[2024-12-05] VITALS (12 sets, daily range): BP systolic 139–155; BP diastolic 69–77; PULSE 62–72; RESP 16; TEMP 36.6; O2SAT 96–100; BMI 26.6; BMI 22.4
[2024-12-05 19:36] LABS: Microscopic, Urine URINE MICROSCOPIC (MICROSCOPIC)
[2024-12-05 19:40] LABS: Bilirubin,Urine Negative (Negative); Color,Urine YELLOW (Yellow); Glucose,Urine (UA) Negative (Negative); Ketones,Urine Negative (Negative); Leukocyte Esterase,Urine Negative (Negative); PH,Urine 6.0 (5.0-8.5); Protein,Urine Negative (Negative); Specific Gravity, Urine 1.025 (1.005-1.030); Urobilinogen,Urine 0.2 EU/dl (0.2)
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
[2024-12-05 20:00] LABS: Bacteria,Urine Trace /lpf; Mucus,Urine 2+ /lpf; WBC,Urine Occasional #/hpf (0-3)
--- NOTE | 2024-12-05 21:15 | PC.NURSE ---
I spoke with Ginger from the after hours guardian ship, she stated that the hospital would need to find the pt transportation or the pt would have to stay in the hospital until tomorrow when Thad Stroud could arrange transportation.
== END 2024-12-05 22:50 ==
PROVIDERS: Nurse Practitioner Family; Emergency Provider Student in an Organized Health Care Education/Training Program
DX: R45.1 Restlessness and agitation (principal); F03.911 Unspecified dementia, unspecified severity, with agitation
CPT/HCPCS: 81001; 99283; 99284

== ENCOUNTER 2025-03-21 00:04 | Emergency (ER) | payer MEDICARE, MEDICAID, SELFPAY ==
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
--- NOTE | 2025-03-21 00:01 | CT_ITS ---
PROCEDURE INFORMATION: Exam: CT Cervical Spine Without Contrast Exam date and time: 03/21/2025 1:08 AM Age: 74 years old Clinical indication: Injury or trauma; Fall; Blunt trauma TECHNIQUE: Imaging protocol: Computed tomography of the cervical spine without contrast. Radiation optimization: All CT scans at this facility use at least one of these dose optimization techniques: automated exposure control; mA and/or kV adjustment per patient size (includes targeted exams where dose is matched to clinical indication); or iterative reconstruction. COMPARISON: CT HEAD/BRAIN WO CON 03/21/2025 1:05 AM FINDINGS: Bones: At C3-C4 and C4-C5 there is disc osteophyte complexes and facet joint arthropathy resulting in mild neuroforaminal and mild canal narrowing. No acute fracture or malalignment of the cervical spine Lungs: Lung apices are normal. Soft tissues: Unremarkable. IMPRESSION: No acute cervical spine fracture.
--- NOTE | 2025-03-21 00:01 | XR_ITS ---
PROCEDURE INFORMATION: Exam: XR Pelvis Exam date and time: 03/21/2025 12:49 AM Age: 74 years old Clinical indication: Pelvic pain; Left hip pain , fall today TECHNIQUE: Imaging protocol: Radiologic exam of the pelvis. Views: 1 or 2 view. COMPARISON: CR XR PELVIS 1-2V 05/10/2022 8:39 PM FINDINGS: Bones/joints: Unremarkable. No acute fracture. Soft tissues: Unremarkable. IMPRESSION: No acute findings.
--- NOTE | 2025-03-21 00:01 | CT_ITS ---
PROCEDURE INFORMATION: Exam: CT Pelvis Without Contrast, Skeleton Exam date and time: 03/21/2025 1:11 AM Age: 74 years old Clinical indication: Injury or trauma; Fall; Blunt trauma (contusions or hematomas); Left; Hip; Additional info: Fall, ? L hip pain TECHNIQUE: Imaging protocol: Computed tomography of the pelvis without contrast. Exam focused on the skeleton. Radiation optimization: All CT scans at this facility use at least one of these dose optimization techniques: automated exposure control; mA and/or kV adjustment per patient size (includes targeted exams where dose is matched to clinical indication); or iterative reconstruction. COMPARISON: CR XR PELVIS 1-2V 03/21/2025 12:49 AM FINDINGS: Bones/joints: Unremarkable. No acute fracture. No dislocation. Soft tissues: Unremarkable. IMPRESSION: No acute fracture or dislocation involving the bony pelvis.
[2025-03-21 00:19] VITALS: BP 167/78; PULSE 71; RESP 18; TEMP 37.1; O2SAT 96; BMI 22.4
[2025-03-21 00:27] VITALS: BP 165/78; PULSE 74; RESP 18; TEMP 37.2; O2SAT 98
[2025-03-21 00:28] VITALS: O2SAT 98
--- NOTE | 2025-03-21 00:33 | ECG_ITS ---
APPROVED REPORT Exam: Resting ECG HR:52 bpm ECG Measurements Heart Rate 52 AXES QRSd 85 QRS 56 QT 424 T 23 QTc 404 Conclusion SUPRAVENTRICULAR BRADYCARDIA ABNORMAL RHYTHM ECG Electronically signed by : BESSIE MOULTON, 03/21/2025 04:57:04
[2025-03-21 01:53] LABS: Hepatitis C Ab Qual. W/ RFX NEGATIVE (Negative)
--- NOTE | 2025-03-21 01:55 | HMH.EDGENADL ---
Discharge Plan Disposition Patient Disposition: Xfer SNF Condition: Good Prescriptions Prescriptions: No Action levetiracetam 500 mg tablet 500 mg PO BID Patient Comments: TAKE 1 TABLET BY MOUTH TWICE DAILY aspirin 81 mg tablet,delayed release (DR/EC) 81 mg PO DAILY Rx Instructions: Take 1 tablet by mouth once daily amlodipine 5 mg tablet 5 mg PO DAILY Patient Comments: TAKE 1 TABLET BY MOUTH ONCE DAILY FOR 90 DAYS folic acid 1 mg tablet 1 mg PO DAILY Patient Comments: TAKE 1 TABLET BY MOUTH ONCE DAILY ferrous sulfate 325 mg (65 mg iron) Tablet 325 mg PO BID omeprazole 20 mg Capsule,Delayed Release(Dr/Ec) 20 mg PO BID memantine [Namenda] 5 mg Tablet 5 mg PO BID buspirone 10 mg tablet 10 mg PO BID Referrals Follow up/Referrals: Provider,Referral, MD [Primary Care Provider, Medical] - See instructions Activity Restrictions/Add. Instructions Additional Instructions/Restrictions: Walter was evaluated in the ER and is believed to be appropriate for discharge at this time. He should continue all home medications as previously prescribed. Follow-up with primary care doctor for reevaluation. Return to the ER with new, worsening, or otherwise concerning symptoms. Clinical Impressions Clinical Impression: Fall, Bradycardia Print Language Print Language: [place] Discharge ED Provider: Eunice Louis General Adult HPI General Chief complaint: Fall Stated complaint: Fall, L Leg outward rotation Time Seen by Provider: 03/21/25 00:12 Mode of Arrival: EMS Source of Information: Patient and EMS Description of Symptoms (Recalled from ER Triage Doc. by RN): EMS states they were call for a 74 YOM who fell 15min prior to being called. States when they got there nursing staff advised patient fell an unknown amount of time ago, with unknown details of the fall.States patient is at his normal pbaseline, with normal vitals for him. Patient was marylou in the 50s EMS states he is a frequent flyer and that is his baseline. EMS states patient walked [facility] withount incident or difficulty. Patient is A&Ox1, patient does have a ahistory of dementia. Patient does not remember falling, states he is in no pain. Patient has no fontanez, or deformaties on his fhead, face or neck. Patient left leg is shortened slightly. History of Present Illness HPI narrative: 74-year-old male with dementia who is at baseline only oriented to self according to EMS presents from [facility] after a fall. Reportedly nursing staff stated patient fell less than 1 hour prior to arrival. While they did not know an exact time, they knew it had not been long because they had recently checked on him. Patient also states he was not on the ground very long. Nursing facility believes patient slipped on some water that was in his room. He does not remember exactly what happened in the fall but states he did not hit his head. He denies having any pain. Nursing facility when they called who reported they thought his left leg was rotated abnormally, however when EMS got there they got him up and patient ambulated to the stretcher independently. EMS reports no medications administered during transportation, he had no complaints with them and had vitals that were at his baseline. The ambulance crew states he is well-known to them and is at his mental baseline and his vitals are normal for him including his bradycardia in the 50s. I did review previous EKGs from the last few years which do demonstrate patient has had bradycardia in the 50s before. Patient states nothing hurts. He is able to tell me his name but is otherwise disoriented to location and time stating they told me but I do not remember . He is very pleasant. No other complaints or concerns. Related Data Home Medications ?Medication ?Instructions ?Recorded ?Confirmed levetiracetam 500 mg tablet 500 mg PO BID SEIZURES 11/17/21 01/18/23 aspirin 81 mg tablet,delayed 81 mg PO DAILY heart health 01/05/22 01/18/23 release amlodipine 5 mg tablet 5 mg PO DAILY High blood pressure 05/11/22 01/18/23 folic acid 1 mg tablet 1 mg PO DAILY Supplement 05/11/22 01/18/23 buspirone 10 mg tablet 10 mg PO BID Depression 07/28/22 01/18/23 ferrous sulfate 325 mg (65 mg 325 mg PO BID Supplement 07/28/22 01/18/23 iron) tablet memantine 5 mg tablet (Namenda) 5 mg PO BID ALZHEIMERS 07/28/22 01/18/23 omeprazole 20 mg capsule,delayed 20 mg PO BID Reflux/Acid reflux 07/28/22 01/18/23 release Allergies Allergy/AdvReac Type Severity Reaction Status Date / Time No Known Allergies Allergy Verified 09/16/22 12:39 [facility] Disclaimer: The information contained in this section may have been updated after the patient was seen, as this information can be updated by other users. 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) Smoking Status: Never smoker alcohol intake: never substance use type: denies use current occupational status: disabled Travel in the last 8 weeks?: None household members: none housing: house lives independently: No service: No halfway: No caffeine: Yes do you feel safe at home: Yes victim of physical abuse: No victim of emotional abuse: No victim of sexual abuse: No would you like helpful sources: No Other Medical History Have you received the Flu Vaccine for this season: No Have you received the Pneumonia Vaccine: Yes ROS Obtained: Yes Systems reviewed as appropriate & no additional complaints except as documented Per HPI Physical Exam General General appearance: alert and in no apparent distress Head Head exam: atraumatic, normocephalic and normal inspection Eye Eye exam: Present PERRL and EOMI ENT ENT exam: Present mucous membranes moist Neck Neck exam: Present normal inspection and full ROM; Absent tenderness Chest Chest inspection: Present symmetric chest wall rise; Absent tenderness Respiratory Respiratory exam: Present normal lung sounds bilaterally; Absent respiratory distress, wheezes or stridor Cardiovascular Cardiovascular exam: Present normal rhythm and bradycardia (Heart rate 58 during exam) Abdominal Exam Abdominal exam: Present soft; Absent distention, tenderness, guarding, rebound or trauma exam: Present normal inspection Extremities Exam Extremities exam: Present full ROM and normal capillary refill; Absent tenderness or edema Back Exam Back exam: Absent paraspinal tenderness or vertebral tenderness Neurological Exam Neurological exam: Present alert and other (GCS 14 due to disorientation); Absent oriented X3 (Oriented only to self) or motor sensory deficit Psychiatric Psychiatric exam: Present normal affect and normal mood Skin Skin exam: Present warm, dry and other (No bruising, skin tears, or other traumatic injuries identified.) Medical Decision Making Medical Records Medical records reviewed: Yes I reviewed the patient's medical records. Screening: Per USPSTF and CDC recommendations, given the prevalence of disease in our region, it is our hospital?s policy to screen for HIV and viral Hepatitis for all patients aged 18 and over and those with ongoing risk factors. MR Comment: See HPI [place] Inquiry Pt receiving controlled substance: No Vital Signs: 03/21/25 00:19 03/21/25 00:27 03/21/25 00:28 Temperature 98.8 F 98.9 F Temperature Source Oral Pulse Rate 74 Pulse Rate [Right] 71 Respiratory Rate 18 18 Blood Pressure 165/78 H Blood Pressure [Right Arm] 167/78 H Blood Pressure Mean [Right Arm] 107 02 Sat by Pulse Oximetry 96 98 98 Oxygen Delivery Method Room Air Room Air Room Air 03/21/25 02:34 Temperature 98.9 F Temperature Source Pulse Rate 72 Pulse Rate [Right] Respiratory Rate 19 Blood Pressure 125/74 Blood Pressure [Right Arm] Blood Pressure Mean [Right Arm] 02 Sat by Pulse Oximetry Oxygen Delivery Method Room Air Lab Data Lab Results 03/21/25 00:37: HCV Ab CASEY w/Rflx PCR Qn Negative, HIV Ag/Ab Combo Qual Negative Orders (Tests/Meds): ORDERS Category Date Time Status CT bony pelvis Stat Cat Scan 03/21/25 00:[address] cervical spine wo con Stat Cat Scan 03/21/25 00:[address] head/brain wo con Stat Cat Scan 03/21/25 00:01 Completed CXR --portable [XR chest portable] Stat Exams 03/21/25 00:01 Completed Pelvis XR 1-2 views [XR pelvis 1-2V] Stat Exams 03/21/25 00:01 Completed HIV Combo Stat Lab 03/21/25 00:37 Completed Hepatitis C Ab Qual. W/ RFX Stat Lab 03/21/25 00:37 Completed Medical Decision Narrative: In summary, this 74-year-old male with comorbidities described in the HPI as well as hypertension, hyperlipidemia and history of smoking presents to the emergency department today with concerns of unwitnessed fall at the halfway. On initial evaluation patient is bradycardic but otherwise hemodynamically stable, afebrile, GCS 14 due to mild confusion which is reportedly at his baseline secondary to dementia, no tenderness anywhere in the body, the shortening and rotation that was reportedly seen at the nursing facility is not present on exam here, atraumatic, normal cephalic, moving all extremities, no focal neurologic deficits, a thorough exam was performed and there are no traumatic abnormalities appreciated.. Differential diagnosis includes but is not limited to fall, I considered the possibility of intracranial bleed, skull fracture, C-spine injury though I have lower suspicion for these. I also did consider the possibility of occult hip fracture though patient does not seem to be tender in this area. Based on these concerns, I ordered CT imaging, x-rays, since patient is bradycardic I did order an ECG as well though I do not suspect ACS to be contributing since patient has no chest pain, shortness of breath, and states he feels well. ECG personally interpreted demonstrates bradycardia that appears to be sinus though it may be very slow A-fib, normal QTc, no STEMI. Similar to previous. No ischemic findings. Patient was well-appearing while in the ER. X-rays personally interpreted do not demonstrate acute traumatic injury, see radiology read for final interpretation. CT head, C-spine, CT bony pelvis all personally interpreted do not demonstrate acute traumatic injury. Specifically I do not appreciate hip fracture. C-spine has degenerative changes. See radiology read for final interpretation. I believe patient is appropriate for discharge at this time. On reassessment he has continued to be pain-free, at his mental baseline, hemodynamically stable aside from bradycardia from which he is asymptomatic. Report was called to halfway nurse Jazmín. Discharge instructions were given to halfway. They indicated understanding. The patient was discharged in stable condition. Critical Care Critical Care Time Critical Care Time: No
--- NOTE | 2025-03-21 01:57 | PC.NURSE ---
Called [facility] dispatch to ask if it was possible to for them to give pt a ride back to [facility], they called me back and said that they were able to and will be at the hospital to warehouse picker the pt.
[2025-03-21 02:34] VITALS: BP 125/74; PULSE 72; RESP 19; TEMP 37.2; O2SAT 98
== END 2025-03-21 02:35 ==
PROVIDERS: Emergency Provider Emergency Medicine
DX: R00.1 Bradycardia, unspecified (principal); W19.XXXA Unspecified fall, initial encounter
CPT/HCPCS: 70450; 71045; 72125; 72170; 72192; 86803; 87389; 93005; 99285